=== PATIENT | male | born 1970 | race Caucasian/White ===

== ENCOUNTER 2016-10-07 11:23 | Emergency (ER) | payer SELFPAY ==
[~2016-10-07] VITALS: Ht 172.7 cm; Wt 81.5 kg
[~2016-10-07 11:23] MED LIST: DICL50 PO
[2016-10-07 11:24] VITALS: BP 126/79; PULSE 108; RESP 20; TEMP 98; O2SAT 97
[2016-10-07] MEDS ORDERED: CYCL1TAB29 PO (13:20)
[2016-10-07] MEDS ORDERED: IBUP800T23 PO (13:20)
--- NOTE | 2016-10-07 13:21 | PD ---
HPI Chief Complaint: Hip Injury Time Seen by Provider: 13:15 Travel History International Travel<30 days: No Contact w/Intl Traveler<30days: No Traveled to known affect area: No History of Present Illness HPI Patient is a 46 year-old male presenting to the emergency department for evaluation of left hip pain. Patient denies any injury or trauma. Patient states the pain started approximately one week ago and feels sore when he lifts his leg. He weakness in his leg, numbness, tingling. Patient states that he is taking ibuprofen occasionally for the pain. He states that his boss pushes him to work hard and this seems to exacerbate the pain. He reports his pain as a 6 out of 10 and describes it as sore. PFSH Past Medical History Medical History: Denies Significant Hx Anemia: No Asthma: No Autoimmune Disease: No Blood Disorders: No Bipolar Disorder: No Anxiety: No Depression: No Cancer: No Cardiovascular Problems: No High Cholesterol: No Chemotherapy: No Chest Pain: No Congestive Heart Failure: No COPD: No Cerebrovascular Accident: No Coronary Artery Disease: No Diabetes: No Endocrine: No Gastrointestinal Disorders: No Genitourinary: No Hepatitis: Yes Hypertension: No Kidney Stones: No Musculoskeletal: No Neurologic: No Psychiatric: No Reproductive: No Respiratory: No Migraines: No Myocardial Infarction: No Pancreatitis: No Radiation Therapy: No Schizophrenia: No Seizures: No Sickle Cell Disease: No Thyroid Disease: No Past Surgical History AICD: No Appendectomy: No Arteriovenous Shunt: No Cardiac Surgery: No Cholecystectomy: No Coronary Artery Bypass Graft: No Coronary Stent: No Insulin Pump: No Joint Replacement: No Pacemaker: No Tonsillectomy: No Tympanostomy Tube: No Social History Alcohol Use: No Tobacco Use: Yes (1- 1 1/2 PACKS/DAY) Substance Use: Yes Allergies-Medications (Allergen,Severity, Reaction): Coded Allergies: No Known Allergies (Verified , 10/07/16) Reported Meds & Prescriptions Reported Meds & Active Scripts Active Voltaren (Diclofenac Sodium) 50 Mg Tabec 50 Mg PO TID Review of Systems Except as stated in HPI: all other systems reviewed are Neg Musculoskeletal: Positive: Myalgias, Cramping Physical Exam Narrative GENERAL: Well-nourished, well-developed patient. SKIN: Warm and dry. HEAD: Normocephalic. EYES: No scleral icterus. No injection or drainage. NECK: Supple, trachea midline. No JVD or lymphadenopathy. CARDIOVASCULAR: Regular rate and rhythm without murmurs, gallops, or rubs. RESPIRATORY: Breath sounds equal bilaterally. No accessory muscle use. GASTROINTESTINAL: Abdomen soft, non-tender, nondistended. MUSCULOSKELETAL: No cyanosis, or edema. Tenderness to palpation on left lateral upper thigh. 5/5 muscle strength in bilateral lower extremities. BACK: Nontender without obvious deformity. No CVA tenderness. NEUROLOGICAL: Awake and alert. Cranial nerves II through XII intact. Motor and sensory grossly within normal limits. Five out of 5 muscle strength in all muscle groups. Normal speech. Data Data Last Documented VS Vital Signs Date Time Temp Pulse Resp B/P Pulse Ox O2 Delivery O2 Flow Rate FiO2 10/07/16 11:24 98.0 108 20 126/79 97 Room Air [facility] Medical Decision Making Medical Screen Exam Complete: Yes Emergency Medical Condition: Yes Interpretation(s) Vital Signs Date Time Temp Pulse Resp B/P Pulse Ox O2 Delivery O2 Flow Rate FiO2 10/07/16 11:24 98.0 108 20 126/79 97 Room Air Differential Diagnosis Sprain versus strain versus spasm versus other Narrative Course Patient is a 46-year-old male presenting to the emergency department for evaluation of left thigh/hip pain that started about a week ago with no defining injury or trauma or new activity. Patient is neurologically intact, he has full range of motion in bilateral lower extremities with no weakness on exam. Patient was advised to trial conservative management with anti- inflammatory medication, muscle relaxer, heat and ice. He was advised to continue range of motion exercises, avoid bed rest, avoid exacerbating activities. He was encouraged to follow-up with her primary doctor or return to emergency department for any new or worsening symptoms. Patient verbalized understanding of these instructions. Patient is stable for discharge. Diagnosis Primary Impression: Muscle strain Referrals: Primary Care Physician Patient Instructions: General Instructions, Muscle Strain (GEN) Departure Forms: Tests/Procedures, Work Release Enter return to work date: Oct 08, 2016 Special Instructions: Please allow for 2-3 days of light duty upon return to work on Friday10/09/16 Additional Instructions: Follow-up with a primary doctor Apply warm moist heat to the affected area, continue range of motion exercises, avoid bed rest, avoid exacerbating activities Take medication as directed Return to emergency department for any new or worsening symptoms Med/Other Pt SpecificInfo: Prescription(s) given Scripts Cyclobenzaprine (Flexeril)10 Mg Tab10 Mg PO TID PRN (MUSCLE SPASM) 7 Days Ref 0 Prov:Beata Resendiz 10/07/16 Ibuprofen 800 Mg [id number] Mg PO Q8HR PRN (PAIN) 10 Days Ref 0 Prov:Beata Resendiz 10/07/16 Disposition: 01 DISCHARGE HOME Condition: Stable Beata Resendiz Oct 07, 2016 13:21
== END 2016-10-07 13:39 | disposition home or self-care (01) ==
LOC: NEPB 11:23
DX: S76.012A Strain of muscle, fascia and tendon of left hip, initial encounter (principal); F17.210 Nicotine dependence, cigarettes, uncomplicated; X58.XXXA Exposure to other specified factors, initial encounter; Y93.9 Activity, unspecified; Y92.9 Unspecified place or not applicable
CPT/HCPCS: 99283

== ENCOUNTER 2016-10-16 09:13 | Emergency (ER) | payer SELFPAY ==
[~2016-10-16] VITALS: Ht 172.7 cm; Wt 80.0 kg
[~2016-10-16 09:13] MED LIST changes: +CYCL1TAB29 PO; +IBUP800T23 PO
[2016-10-16 09:14] VITALS: BP 142/92; PULSE 88; RESP 18; TEMP 98.1; O2SAT 99
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
[2016-10-16] MEDS ORDERED: IBUP800T23 PO (09:59)
[2016-10-16] MEDS ORDERED: ROBA500T PO (09:59)
[2016-10-16] MEDS ORDERED: METHOCARBAMOL 500 MG TAB PO ONE (10:00)
[2016-10-16] MEDS ORDERED: IBUPROFEN 800 MG TAB PO ONE (10:00)
== END 2016-10-16 10:19 | disposition home or self-care (01) ==
LOC: NEPB 09:13
DX: S46.811A Strain of other muscles, fascia and tendons at shoulder and upper arm level, right arm, initial encounter (principal); W03.XXXA Other fall on same level due to collision with another person, initial encounter; Y92.9 Unspecified place or not applicable; J44.9 Chronic obstructive pulmonary disease, unspecified; F17.210 Nicotine dependence, cigarettes, uncomplicated
CPT/HCPCS: 99283

== ENCOUNTER 2016-12-12 09:44 | Emergency (ER) | payer OTHER ==
[~2016-12-12 09:44] MED LIST changes: +ROBA500T PO
[2016-12-12 09:45] VITALS: BP 183/91; PULSE 81; RESP 20; TEMP 98.3; O2SAT 96
--- NOTE | 2016-12-12 10:09 | PD ---
HPI Chief Complaint: Musculoskeletal Complaint Time Seen by Provider: 09:55 Travel History International Travel<30 days: No Contact w/Intl Traveler<30days: No Traveled to known affect area: No History of Present Illness HPI This 46-year-old male is complaining of back pain. Says the pain started yesterday and is getting more severe. He denies any injury. After considerable prompting he does admit to IV drug use. He says the right leg is numb. He arrived by ambulance. He denies any medical illnesses. He thinks he had a fever yesterday. He has not had any dysuria or incontinence. PFSH Past Medical History Anemia: No Asthma: No Autoimmune Disease: No Blood Disorders: No Bipolar Disorder: No Anxiety: No Depression: No Cancer: No Cardiovascular Problems: No High Cholesterol: No Chemotherapy: No Chest Pain: No Congestive Heart Failure: No COPD: Yes Cerebrovascular Accident: No Coronary Artery Disease: No Diabetes: No Endocrine: No Gastrointestinal Disorders: No Genitourinary: No Hepatitis: Yes (HEP C) Hypertension: No Kidney Stones: No Musculoskeletal: No Neurologic: No Psychiatric: No Reproductive: No Respiratory: Yes (COPD) Migraines: No Myocardial Infarction: No Pancreatitis: No Radiation Therapy: No Schizophrenia: No Seizures: No Sickle Cell Disease: No Thyroid Disease: No Past Surgical History AICD: No Appendectomy: No Arteriovenous Shunt: No Cardiac Surgery: No Cholecystectomy: No Coronary Artery Bypass Graft: No Coronary Stent: No Insulin Pump: No Joint Replacement: No Pacemaker: No Tonsillectomy: No Tympanostomy Tube: No Social History Alcohol Use: Yes Tobacco Use: Yes (1- 1 1/2 PACKS/DAY) Substance Use: Yes (HEROIN, MARIJUANA) Allergies-Medications (Allergen,Severity, Reaction): Coded Allergies: No Known Allergies (Verified , 12/12/16) Reported Meds & Prescriptions Reported Meds & Active Scripts Active No Active Prescriptions or Reported Medications Review of Systems General / Constitutional: Positive: Fever Eyes: No: Diploplia, Blurred Vision HENT: No: Headaches, Vertigo Cardiovascular: No: Chest Pain or Discomfort, Palpitations Respiratory: No: Cough, Shortness of Breath Gastrointestinal: No: Vomiting, Diarrhea Genitourinary: No: Urgency, Frequency Musculoskeletal: Positive: Arthralgias, Pain Neurologic: Positive: Sensory Disturbance Psychiatric: Positive: Anxiety, Substance Abuse Endocrine: No: Heat Intolerance Hematologic/Lymphatic: No: Easy Bruising Physical Exam Narrative GENERAL: Well-developed male SKIN: Focused skin assessment warm/dry. There are multiple venipuncture sites in the left antecubital fossa HEAD: Atraumatic. Normocephalic. EYES: Pupils equal and round. No scleral icterus. No injection or drainage. ENT: No nasal bleeding or discharge. Mucous membranes pink and moist. NECK: Trachea midline. No JVD. CARDIOVASCULAR: Regular rate and rhythm. No murmur appreciated. RESPIRATORY: No accessory muscle use. Clear to auscultation. Breath sounds equal bilaterally. GASTROINTESTINAL: Abdomen soft, non-tender, nondistended. Hepatic and splenic margins not palpable. MUSCULOSKELETAL: No obvious deformities. No clubbing. No cyanosis. No edema. He complains of tenderness of the low back. NEUROLOGICAL: Awake and alert. No obvious cranial nerve deficits. Pressured speech, there is diminished sensation in the right leg, motor strength appears intact in flexion and extension of the foot PSYCHIATRIC: Anxious mood, insight limited Data Data Last Documented VS Vital Signs Date Time Temp Pulse Resp B/P Pulse Ox O2 Delivery O2 Flow Rate FiO2 12/12/16 14:25 98.4 78 14 150/101 98 Nasal Cannula 2 Orders Complete Blood Count With Diff (12/12/16 10:02) Comprehensive Metabolic Panel (12/12/16 10:02) Prothrombin Time / Inr (Pt) (12/12/16 10:02) Act Partial Throm Time (Ptt) (12/12/16 10:02) C-Reactive Protein (Crp) (12/12/16 10:02) Westergren Sedimentation Rate (12/12/16 10:02) Drug Screen, Random Urine (12/12/16 10:02) Mri L Spine W&W/O Contrast (12/12/16 ) Blood Culture (12/12/16 10:02) Ondansetron Inj (Zofran Inj) (12/12/16 10:30) Hydromorphone Pf Inj (Dilaudid Pf Inj) (12/12/16 10:30) Chest, Single Ap (12/12/16 ) Abdomen, Kub Only (12/12/16 ) Orbits, Limited (Two Views) (12/12/16 ) Hydromorphone Pf Inj (Dilaudid Pf Inj) (12/12/16 13:30) Gadodiamide Pf Inj (Omniscan Pf Inj) (12/12/16 13:58) Labs Laboratory Tests Test 12/12/16 10:15 White Blood Count 9.4 TH/MM3 Red Blood Count 5.84 MIL/MM3 Hemoglobin 18.5 GM/DL Hematocrit 55.9 % Mean Corpuscular Volume 95.6 FL Mean Corpuscular Hemoglobin 31.7 PG Mean Corpuscular Hemoglobin 33.1 % Concent Red Cell Distribution Width 12.8 % Platelet Count 57 TH/MM3 Mean Platelet Volume 9.6 FL Neutrophils (%) (Auto) 78.2 % Lymphocytes (%) (Auto) 12.4 % Monocytes (%) (Auto) 6.7 % Eosinophils (%) (Auto) 2.4 % Basophils (%) (Auto) 0.3 % Neutrophils # (Auto) 7.4 TH/MM3 Lymphocytes # (Auto) 1.2 TH/MM3 Monocytes # (Auto) 0.6 TH/MM3 Eosinophils # (Auto) 0.2 TH/MM3 Basophils # (Auto) 0.0 TH/MM3 CBC Comment AUTO DIFF Differential Total Cells 100 Counted Neutrophils % (Manual) 69 % Band Neutrophils % 11 % Lymphocytes % 17 % Monocytes % 1 % Eosinophils % 2 % Neutrophils # (Manual) 7.5 TH/MM3 Differential Comment FINAL DIFF MANUAL Platelet Estimate LOW Platelet Morphology Comment NORMAL Red Cell Morphology Comment NORMAL Erythrocyte Sedimentation Rate 1 mm/hr Prothrombin Time 11.2 SEC Prothromb Time International 1.0 RATIO Ratio Activated Partial 30.7 SEC Thromboplast Time Sodium Level 140 MEQ/L Potassium Level 4.3 MEQ/L Chloride Level 102 MEQ/L Carbon Dioxide Level 28.5 MEQ/L Anion Gap 10 MEQ/L Blood Urea Nitrogen 7 MG/DL Creatinine 0.86 MG/DL Estimat Glomerular Filtration 95 ML/MIN Rate Random Glucose 100 MG/DL Calcium Level 9.1 MG/DL Total Bilirubin 0.6 MG/DL Aspartate Amino Transf 54 U/L (AST/SGOT) Alanine Aminotransferase 59 U/L (ALT/SGPT) Alkaline Phosphatase 75 U/L C-Reactive Protein 0.41 MG/DL Total Protein 9.1 GM/DL Albumin 3.8 GM/DL [facility] Medical Decision Making Medical Screen Exam Complete: Yes Emergency Medical Condition: Yes Medical Record Reviewed: Yes Differential Diagnosis This gentleman is complaining of severe pain. He is an IV drug user so there is concern that he may have an epidural abscess. Narrative Course His hemoglobin is elevated at 18.5. His platelet count is actually low. Sedimentation rate and CRP are both normal which makes abscess less likely. MRI of the lumbar spine was obtained and shows grade 1 anterolisthesis at L4- L5. There is advanced facet arthropathy and moderate central canal and lateral recess stenosis. On the right side there is a large annular tear no focal disc extrusion compressing the right L4 nerve root. Patient will be given prescriptions for pain medication. He does have a history of IV drug abuse but says he uses abuses cocaine. He does appear uncomfortable and I will prescribe some Lortab. I will request mandatory referral with neurosurgery for follow-up Diagnosis Primary Impression: Radiculopathy Qualified Code: M54.16 - Lumbar radiculopathy Additional Impression: HNP (herniated nucleus pulposus), lumbar Scripts Hydrocodone-Acetaminophen (Lortab)7.5-325 Mg Tab1 Tab PO Q4H PRN (PAIN) #30 TAB Ref 0 Prov:Ludwin Banks MD 12/12/16 Cyclobenzaprine (Flexeril)10 Mg Tab10 Mg PO TID #30 TAB Ref 0 Prov:Ludwin Banks MD 12/12/16 Disposition: 01 DISCHARGE HOME Condition: Stable Ludwin Banks MD December 12, 2016 10:09
[2016-12-12] MEDS ORDERED: HYDROmorphone HCL PF 1 MG/ML VIAL IV PUSH ONE ×2 (10:30→13:30)
[2016-12-12] MEDS ORDERED: ONDANSETRON HCL 4 MG/2 ML VIAL IV PUSH ONE (10:30)
[2016-12-12 10:35] LABS: AUTOMATED NEUTROPHIL # 7.4 TH/MM3 (1.8-7.7); BASOPHIL % 0.3 % (0.0-2.0); EOSINOPHIL # 0.2 TH/MM3 (0-0.4); EOSINOPHIL % 2.4 % (0.0-4.0); HEMATOCRIT 55.9 % (39.0-51.0); LYMPH % 12.4 % (9.0-44.0); LYMPHOCYTE # 1.2 TH/MM3 (1.0-4.8); MEAN CELL VOLUME 95.6 FL (80.0-100.0); MEAN CORPUSCULAR HEMOGLOBIN 31.7 PG (27.0-34.0); MEAN CORPUSCULAR HGB CONC 33.1 % (32.0-36.0); MONO % 6.7 % (0.0-8.0); NEUT % 78.2 % (16.0-70.0); PLATELET COUNT 57 TH/MM3 (150-450); RED BLOOD COUNT 5.84 MIL/MM3 (4.50-5.90); RED CELL DISTRIBUTION WIDTH 12.8 % (11.6-17.2); WHITE BLOOD COUNT 9.4 TH/MM3 (4.0-11.0)
[2016-12-12 10:39] LABS: CHLORIDE 102 MEQ/L (98-107); POTASSIUM 4.3 MEQ/L (3.5-5.1); SODIUM (NA) 140 MEQ/L (136-145)
[2016-12-12 10:42] LABS: ANION GAP 10 MEQ/L (5-15); BICARBONATE 28.5 MEQ/L (21.0-32.0)
[2016-12-12 10:43] LABS: APTT (PATIENT) 30.7 SEC (24.3-30.1); BLOOD UREA NITROGEN 7 MG/DL (7-18); PROTHROMBIN TIME - PATIENT 11.2 SEC (9.8-11.6)
[2016-12-12 10:45] LABS: ALT (GPT) 59 U/L (12-78)
[2016-12-12 10:46] LABS: AST (GOT) 54 U/L (15-37); GLOMERULAR FILTRATION RATE 95 ML/MIN (>89)
[2016-12-12 10:47] LABS: TOTAL BILIRUBIN ADULT 0.6 MG/DL (0.2-1.0)
[2016-12-12 10:48] LABS: ALKALINE PHOSPHATASE 75 U/L (45-117)
[2016-12-12 10:54] LABS: HEMO FLAGS AUTO DIFF
[2016-12-12 10:58] LABS: BANDS 11 % (0-6); EOSINOPHILS 2 % (0-4); NEUTROPHIL # MANUAL DIFF 7.5 TH/MM3 (1.8-7.7); POLYS (SEG NEUTROPHILS) 69 % (16-70); WBC DIFF SAMPLE 100
[2016-12-12 10:59] LABS: PLATELET ESTIMATE SMEAR LOW (NORMAL); PLATELET MORPHOLOGY NORMAL (NORMAL); SCAN/DIFF FINAL DIFF MANUAL
[2016-12-12 12:14] VITALS: PULSE 78; RESP 14; TEMP 98.3; O2SAT 100
--- NOTE | 2016-12-12 13:11 | RADHPO ---
EXAM DATE/TIME: 12/12/2016 12:42 [facility] COMPARISON: No previous studies available for comparison. INDICATIONS : Patient states back pain for three days but no known injury. MEDICAL HISTORY : None. SURGICAL HISTORY : None. ENCOUNTER: Initial ACUITY: 3 days PAIN SCORE: 10/10 LOCATION: Bilateral back pain. FINDINGS: Single frontal view of the abdomen demonstrates no metallic or radiopaque foreign bodies. There is a nonobstructive bowel gas pattern. There are degenerative changes of the lumbar spine. CONCLUSION: Degenerative changes of the lumbar spine with mild dextroscoliosis. There is no radiopaque foreign nayana dy. Sahil Chow MD on December 12, 2016 at 13:09 Board Certified Radiologist. This report was verified electronically.
--- NOTE | 2016-12-12 13:11 | RADHPO ---
EXAM DATE/TIME: 12/12/2016 12:40 [facility] COMPARISON: No previous studies available for comparison. INDICATIONS : Patient states back pain for three days but no known injury. MEDICAL HISTORY : None. SURGICAL HISTORY : None. ENCOUNTER: Initial ACUITY: 3 days PAIN SCORE: 10/10 LOCATION: Bilateral back pain. FINDINGS: Single AP view of the chest demonstrates a normal-sized cardiac silhouette. No effusion, consolidatio n, or pneumothorax is visualized. Bones and soft tissues demonstrate no acute finding. No radiopaque foreign body is identified. CONCLUSION: No radiopaque foreign bodies visualized. No acute finding is present. Sahil Chow MD on December 12, 2016 at 13:08 Board Certified Radiologist. This report was verified electronically.
--- NOTE | 2016-12-12 13:12 | RADHPO ---
EXAM DATE/TIME: 12/12/2016 12:48 [facility] COMPARISON: No previous studies available for comparison. INDICATIONS : Patient states back pain for three days but no known injury. MEDICAL HISTORY : None. SURGICAL HISTORY : None. ENCOUNTER: Initial ACUITY: 3 days PAIN SCORE: 10/10 LOCATION: Bilateral back pain. FINDINGS: 2 views of the orbits demonstrate no metallic or radiopaque foreign bodies around the globes. There i s dental hardware present. No acute osseous abnormality is seen. CONCLUSION: No metallic or radiopaque foreign body is visualized. Sahil Chow MD on December 12, 2016 at 13:10 Board Certified Radiologist. This report was verified electronically.
[2016-12-12 13:13] VITALS: BP 195/97; PULSE 63; RESP 14; O2SAT 98
[2016-12-12] MEDS ORDERED: GADODIAMIDE PF 287 MG/ML 5 ML VIAL (for RAD MRI) IV ONE (13:58)
[2016-12-12 14:25] VITALS: BP 150/101; PULSE 78; RESP 14; TEMP 98.4; O2SAT 98
--- NOTE | 2016-12-12 14:44 | RADHPO ---
EXAM DATE/TIME: 12/12/2016 13:42 [facility] COMPARISON: No previous studies available for comparison. INDICATIONS : Osteomyelitis. Right leg and back pain for three days. CONTRAST: 15 cc Omniscan (gadodiamide) IV MEDICAL HISTORY : Chronic obstructive pulmonary disease. Hepatitis C. IV drug abuse. SURGICAL HISTORY : None. ENCOUNTER: Initial ACUITY: 3 day PAIN SCORE: 10/10 LOCATION: Lower back. TECHNIQUE: Multiplanar multisequence MRI of the lumbar spine was performed with and without contrast. FINDINGS: The most caudal appearing lumbar vertebra is numbered as L5. T12-L1: The thecal sac has a normal diameter. No evidence of disc bulge or protrusion. The neural foramina are patent bilaterally. L1-L2: The thecal sac has a normal diameter. Mild disc bulge without stenosis. L2-L3: The thecal sac has a normal diameter. No evidence of disc bulge or protrusion. The neural foramina are patent bilaterally. L3-L4: Mild disc bulge without stenosis. L4-L5: Grade 1 anterolisthesis with mild broad-based disc protrusion and facet arthropathy. Focal moderate c entral canal and lateral recess stenosis. On the right side laterally there does appear to be a focal disc extrusion associated with an annular tear that results in compression on the right L4 nerve penny t. This area also enhances postcontrast. L5-S1: The thecal sac has a normal diameter. No evidence of disc bulge or protrusion. The neural foramina are patent bilaterally. CONCLUSION: 1. At L4-5 there is a grade 1 anterolisthesis, advanced facet arthropathy and a moderate central larry l and lateral recess stenosis. On the right side laterally there is a large annular tear and a focal disc extrusion with extruded disc material compressing the right L4 nerve root. There is abnormal enhancement in the right neural foramen at L4-5 as well. No evidence for discitis o r osteomyelitis. Conus intact. Cuauhtemoc Brown MD on December 12, 2016 at 14:36 Board Certified Radiologist. This report was verified electronically.
[2016-12-12] MEDS ORDERED: HYDR-3534 PO (14:57)
[2016-12-12] MEDS ORDERED: CYCL1TAB29 PO (14:57)
== END 2016-12-12 16:15 | disposition home or self-care (01) ==
LOC: PHED 09:44
DX: M54.16 Radiculopathy, lumbar region (principal); M51.26 Other intervertebral disc displacement, lumbar region; J44.9 Chronic obstructive pulmonary disease, unspecified; B19.20 Unspecified viral hepatitis C without hepatic coma; M25.50 Pain in unspecified joint; F17.200 Nicotine dependence, unspecified, uncomplicated; F12.10 Cannabis abuse, uncomplicated; F11.10 Opioid abuse, uncomplicated
CPT/HCPCS: 70250; 71010; 72158; 74000; 80053; 85007; 85027; 85610; 85652; 85730; 86140; 87040; 96374; 96376; 99284; A9579; J1170; J2405

== ENCOUNTER 2017-01-28 23:04 | Emergency (ER) | payer OTHER ==
[~2017-01-28] VITALS: Ht 172.7 cm; Wt 78.0 kg
[~2017-01-28 23:04] MED LIST changes: -DICL50 PO; +HYDR-3534 PO; -IBUP800T23 PO; -ROBA500T PO
[2017-01-28 23:06] VITALS: BP 145/88; PULSE 89; RESP 16; TEMP 98.8; O2SAT 97
[2017-01-28] MEDS ORDERED: ALBU6.7H INH (23:21)
[2017-01-28] MEDS ORDERED: PRED-503 PO (23:21)
--- NOTE | 2017-01-28 23:25 | PD ---
HPI Chief Complaint: Skin Problem Time Seen by Provider: 23:22 Travel History International Travel<30 days: No Contact w/Intl Traveler<30days: No Traveled to known affect area: No History of Present Illness HPI 46-year-old white male presents to emergency department with multiple complaints. He states that his first complaint is that he is having problems with his COPD. He is not using any of his inhaler because he is out. He does continue to smoke cigarettes on occasion and marijuana. He states that he feels short of breath at rest and worse when he does activities. He does have intermittent cough. He denies any fever or chills. Also then goes on to state that his had a pruritic rash on his arms and legs and on his upper back. He said this is been present now for the past week he's been taking over-the- counter Benadryl with temporary relief. The patient also has a lump to his left axilla over the last 3 days. He has become increasingly painful. Lastly he complains of pain down his right leg from his back. He states that he has sciatica which goes into his foot. He states that he has decreased sensation in his big toe. He is a member of the [facility] but has not been seen in the clinic yet. He states that he has called to make an appointment but cannot get through. [facility] Past Medical History Narrative Medical COPD, chronic back pain with sciatica, hepatitis C, thrombocytopenia Anemia: No Asthma: No Autoimmune Disease: No Blood Disorders: No Bipolar Disorder: No Anxiety: No Depression: No Cancer: No Cardiovascular Problems: No High Cholesterol: No Chemotherapy: No Chest Pain: No Congestive Heart Failure: No COPD: Yes Cerebrovascular Accident: No Coronary Artery Disease: No Diabetes: No Endocrine: No Gastrointestinal Disorders: No Genitourinary: No Hepatitis: Yes (HEP C) Hypertension: No Kidney Stones: No Musculoskeletal: No Neurologic: No Psychiatric: No Reproductive: No Respiratory: Yes (COPD) Migraines: No Myocardial Infarction: No Pancreatitis: No Radiation Therapy: No Schizophrenia: No Seizures: No Sickle Cell Disease: No Thyroid Disease: No Tetanus Vaccination: < 5 Years Past Surgical History Surgical History: No Previous Surgery AICD: No Appendectomy: No Arteriovenous Shunt: No Cardiac Surgery: No Cholecystectomy: No Coronary Artery Bypass Graft: No Coronary Stent: No Insulin Pump: No Joint Replacement: No Pacemaker: No Tonsillectomy: No Tympanostomy Tube: No Social History Alcohol Use: Yes Tobacco Use: Yes (1- 1 1/2 PACKS/DAY) Substance Use: Yes (HEROIN, MARIJUANA) Allergies-Medications (Allergen,Severity, Reaction): Coded Allergies: No Known Allergies (Verified , 01/28/17) Reported Meds & Prescriptions Reported Meds & Active Scripts Active Deltasone (Prednisone) 20 Mg Tab 20 Mg PO TID Proventil Hfa 6.7 GM Inh (Albuterol Sulfate) 90 Mcg/Act Aer 2 Puff INH Q6H PRN Lortab (Hydrocodone-Acetaminophen) 7.5-325 Mg Tab 1 Tab PO Q4H PRN Flexeril (Cyclobenzaprine HCl) 10 Mg Tab 10 Mg PO TID Review of Systems Except as stated in HPI: all other systems reviewed are Neg Physical Exam Narrative GENERAL: Well-developed, well-nourished in no acute distress. Nontoxic appearing. HEAD: Normocephalic, atraumatic. EYES: Pupils equal round and reactive. Extraocular motions intact. No scleral icterus. No injection or drainage. ENT: TMs clear without erythema. The external auditory canals clear. Nose: clear . Posterior pharynx is pink and moist. No tonsillar edema or exudate. Uvula midline. Airway patent. NECK: Trachea midline.Supple, nontender, moves head freely. No central bony tenderness or spasm. CARDIOVASCULAR: Regular rate and rhythm without murmurs, gallops, or rubs. RESPIRATORY: Clear to auscultation. Breath sounds equal bilaterally. No wheezes , rales, or rhonchi. GASTROINTESTINAL: Abdomen soft, non-tender, nondistended. No hepato-splenomegaly , or palpable masses. No guarding. EXTREMITIES: No clubbing, cyanosis, or edema. No joint tenderness, effusion, or edema noted. Patient has a 2 x 2 centimeter erythematous tender fluctuant abscess left axilla. Patient also has nail fungus. BACK: Nontender without deformity or crepitance. No flank tenderness. Skin: Patient has a 2 x 2 centimeter abscess left axilla. He also has multiple story it maculopapular lesions on his upper and lower extremities. Data Data Last Documented VS Vital Signs Date Time Temp Pulse Resp B/P Pulse Ox O2 Delivery O2 Flow Rate FiO2 01/28/17 23:06 98.8 89 16 145/88 97 Room Air Orders Prednisone (Deltasone) (01/28/17 23:30) Albuterol-Ipratropium Neb (Duoneb Neb) (01/28/17 23:30) [facility] Medical Decision Making Medical Screen Exam Complete: Yes Emergency Medical Condition: Yes Medical Record Reviewed: Yes Differential Diagnosis Differential diagnosis: Asthma, COPD, substance abuse, cellulitis, abscess, insect bite, contact dermatitis, back pain, back pain with sciatica Narrative Course Patient is given prednisone 60 mg by mouth, DuoNeb, needle aspiration of left axilla abscess. He will be discharged after his breathing treatment. He has been encouraged to follow-up with the clinic or the [facility] Procedures Procedure Narrative Needle aspiration left axilla abscess: The skin is prepped and draped in usual sterile fashion. 1% lidocaine is used to anesthetize the skin. After adequate and his anesthesia and 18-gauge was used to needle decompressed the abscess cavity. 2 cc of pus is removed. Patient tolerated procedure well. Dressing applied. Diagnosis Primary Impression: Abscess of left axilla Additional Impressions: COPD back pain with sciatica contact dermatitis Patient Instructions: General Instructions Additional Instructions: Rest. Elevation. keep clean and dry. Stop smoking and doing drugs. Daily wound care with soap, water and Neosporin. Three Advil every 6 hours. Bactrim DS, prednisone, albuterol Follow-up with [facility] or the [facility] clinic in the next 1-2 days. Return to the ER for any problems. Med/Other Pt SpecificInfo: Prescription(s) given Scripts Sulfamethoxazole-Trimethoprim (Bactrim DS)800-160 Mg Tab1 Tab PO BID #20 TAB Prov:Cindy Lee MD 01/28/17 Prednisone (Deltasone)20 Mg Tab20 Mg PO TID #15 TAB Prov:Cindy Lee MD 01/28/17 Albuterol 6.7 GM Inh (Proventil Hfa 6.7 GM Inh)90 Mcg/Act Aer2 Puff INH Q6H PRN (SHORTNESS OF BREATH) #1 INHALER Prov:Cindy Lee MD 01/28/17 Disposition: 01 DISCHARGE HOME Condition: Stable Cuauhtemoc Burks Jan 28, 2017 23:25
[2017-01-28] MEDS ORDERED: predniSONE 20 MG TAB PO ONE (23:30)
[2017-01-28] MEDS ORDERED: RESP: ALBUTEROL 2.5 MG/IPRATROPIUM 0.5 MG NEB (SCH) INH ONE (23:30)
[2017-01-28] MEDS ORDERED: BACT800T5 PO (23:34)
== END 2017-01-28 23:55 | disposition home or self-care (01) ==
LOC: NEPK 23:04
DX: L02.412 Cutaneous abscess of left axilla (principal); J44.9 Chronic obstructive pulmonary disease, unspecified; L25.9 Unspecified contact dermatitis, unspecified cause; F17.210 Nicotine dependence, cigarettes, uncomplicated; M54.41 Lumbago with sciatica, right side
CPT/HCPCS: 10160; 94664; 99284; J7512

== ENCOUNTER 2017-02-15 08:05 | Emergency (ER) | payer OTHER ==
[~2017-02-15] VITALS: Ht 172.7 cm; Wt 75.0 kg
[~2017-02-15 08:05] MED LIST changes: +ALBU6.7H INH; +PRED-503 PO
[2017-02-15 08:13] VITALS: BP 147/101; PULSE 57; RESP 20; TEMP 98.2; O2SAT 96
[2017-02-15] MEDS ORDERED: SODIUM CHLORIDE 0.9% FLUSH 10 ML FLUSH IVF PRN (08:45)
[2017-02-15] MEDS ORDERED: RESP: ALBUTEROL 2.5 MG/3 ML NEB (SCH) INH ONE (08:45)
[2017-02-15] MEDS ORDERED: methylPREDNISolone SOD SUCC 125 MG/2 ML VIAL IVP ONE (08:45)
--- NOTE | 2017-02-15 08:49 | RADRPT ---
EXAM DATE/TIME: 02/15/2017 08:36 [facility] COMPARISON: CHEST SINGLE AP, December 12, 2016, 12:40. INDICATIONS : Shortness of breath. MEDICAL HISTORY : None. SURGICAL HISTORY : None. ENCOUNTER: Initial ACUITY: 1 week PAIN SCORE: Non-responsive. LOCATION: chest FINDINGS: A single view of the chest demonstrates the lungs to be symmetrically aerated without evidence of mas s, infiltrate or effusion. The cardiomediastinal contours are unremarkable. Osseous structures are intact. CONCLUSION: No acute disease. Mier Hudson MD FACR on February 15, 2017 at 8:47 Board Certified Radiologist. This report was verified electronically.
--- NOTE | 2017-02-15 08:55 | PD ---
HPI Chief Complaint: Respiratory Symptoms Time Seen by Provider: 08:13 Travel History International Travel<30 days: No Contact w/Intl Traveler<30days: No Traveled to known affect area: No History of Present Illness HPI 46-year-old male arrives to the ER via EMS. He states that he woke up and he was unable to breathe. His friends called EMS. EMS reports the patient had wheezing in the right lung. He received one albuterol treatment which he states seems to have helped. He denies fever however has had a cough which has produced phlegm. He denies chest pain. He complains of a cut in the left arm which has caused bleeding however stopped with application of a dressing. PFSH Past Medical History Anemia: No Asthma: No Autoimmune Disease: No Blood Disorders: No Bipolar Disorder: No Anxiety: No Depression: No Cancer: No Cardiovascular Problems: No High Cholesterol: No Chemotherapy: No Chest Pain: No Congestive Heart Failure: No COPD: Yes Cerebrovascular Accident: No Coronary Artery Disease: No Diabetes: No Diminished Hearing: No Endocrine: No Gastrointestinal Disorders: No Genitourinary: No Hepatitis: Yes (HEP C) Hypertension: No Kidney Stones: No Musculoskeletal: No Neurologic: No Psychiatric: No Reproductive: No Respiratory: Yes (COPD) Migraines: No Myocardial Infarction: No Pancreatitis: No Radiation Therapy: No Schizophrenia: No Seizures: No Sickle Cell Disease: No Thyroid Disease: No Past Surgical History AICD: No Appendectomy: No Arteriovenous Shunt: No Cardiac Surgery: No Cholecystectomy: No Coronary Artery Bypass Graft: No Coronary Stent: No Insulin Pump: No Joint Replacement: No Pacemaker: No Tonsillectomy: No Tympanostomy Tube: No Social History Alcohol Use: Yes Tobacco Use: Yes (1- 1 1/2 PACKS/DAY) Substance Use: Yes (H/O HEROIN, MARIJUANA) Allergies-Medications (Allergen,Severity, Reaction): Coded Allergies: No Known Allergies (Verified , 02/11/17) Reported Meds & Prescriptions Reported Meds & Active Scripts Active Prednisone 20 Mg Tab 40 Mg PO DAILY 4 Days Take 40 mg (2 tablets) daily for 5 days Deltasone (Prednisone) 20 Mg Tab 20 Mg PO TID Proventil Hfa 6.7 GM Inh (Albuterol Sulfate) 90 Mcg/Act Aer 2 Puff INH Q6H PRN Lortab (Hydrocodone-Acetaminophen) 7.5-325 Mg Tab 1 Tab PO Q4H PRN Flexeril (Cyclobenzaprine HCl) 10 Mg Tab 10 Mg PO TID Review of Systems Except as stated in HPI: all other systems reviewed are Neg Physical Exam Narrative GENERAL: 46 yo M, WNWD, very sleepy though arousable and able to provide history with repeated prompts SKIN: Warm and dry. There is a abrasion overlying the radial aspect of the most proximal aspect left arm. There is no Rodriguez spots or evidence of peripheral embolic disease. HEAD: Atraumatic. Normocephalic. EYES: Pupils equal and round. No scleral icterus. No injection or drainage. ENT: No nasal bleeding or discharge. Mucous membranes pink and moist. NECK: Trachea midline. No JVD. CARDIOVASCULAR: Regular rate and rhythm. There is no murmur. RESPIRATORY: Respiratory rate appears normal. Minimal wheezing. GASTROINTESTINAL: Abdomen soft, non-tender, nondistended. Hepatic and splenic margins not palpable. MUSCULOSKELETAL: Extremities without clubbing, cyanosis, or edema. No obvious deformities. NEUROLOGICAL: Awake and alert. No obvious cranial nerve deficits. Motor grossly within normal limits. Five out of 5 muscle strength in the arms and legs. Normal speech. PSYCHIATRIC: Cooperative. Appropriate seasonal attire. Data Data Last Documented VS Vital Signs Date Time Temp Pulse Resp B/P Pulse Ox O2 Delivery O2 Flow Rate FiO2 02/15/17 08:25 99 Nasal Cannula 2 02/15/17 08:13 98.2 57 20 147/101 VS reviewed Orders Complete Blood Count With Diff (02/15/17 08:32) Basic Metabolic Panel (Bmp) (02/15/17 08:32) Iv Access Insert/Monitor (02/15/17 08:32) Ecg Monitoring (02/15/17 08:32) Oximetry (02/15/17 08:32) Oxygen Administration (02/15/17 08:32) Chest, Single Ap (02/15/17 08:32) Sodium Chloride 0.9% Flush (Ns Flush) (02/15/17 08:45) Methylprednisolone So Succ Inj (Solumedr (02/15/17 08:45) Albuterol Neb (Albuterol Neb) (02/15/17 08:45) Albuterol Hfa Inh (Proair Hfa Inh) (02/15/17 09:15) Naloxone Inj (Narcan Inj) (02/15/17 09:30) Labs Laboratory Tests Test 02/15/17 08:45 White Blood Count 8.1 TH/MM3 Red Blood Count 4.78 MIL/MM3 Hemoglobin 16.0 GM/DL Hematocrit 47.0 % Mean Corpuscular Volume 98.2 FL Mean Corpuscular Hemoglobin 33.5 PG Mean Corpuscular Hemoglobin 34.1 % Concent Red Cell Distribution Width 13.8 % Platelet Count 87 TH/MM3 Mean Platelet Volume 8.8 FL Neutrophils (%) (Auto) 53.1 % Lymphocytes (%) (Auto) 37.2 % Monocytes (%) (Auto) 7.1 % Eosinophils (%) (Auto) 2.4 % Basophils (%) (Auto) 0.2 % Neutrophils # (Auto) 4.3 TH/MM3 Lymphocytes # (Auto) 3.0 TH/MM3 Monocytes # (Auto) 0.6 TH/MM3 Eosinophils # (Auto) 0.2 TH/MM3 Basophils # (Auto) 0.0 TH/MM3 CBC Comment AUTO DIFF Sodium Level 139 MEQ/L Potassium Level 3.5 MEQ/L Chloride Level 108 MEQ/L Carbon Dioxide Level 24.6 MEQ/L Anion Gap 6 MEQ/L Blood Urea Nitrogen 20 MG/DL Creatinine 0.94 MG/DL Estimat Glomerular Filtration 86 ML/MIN Rate Random Glucose 73 MG/DL Calcium Level 8.0 MG/DL [facility] Medical Decision Making Medical Screen Exam Complete: Yes Emergency Medical Condition: Yes Medical Record Reviewed: Yes Differential Diagnosis Pneumonia, COPD, asthma, bronchitis, anemia, renal failure, endocarditis Narrative Course CBC & BMP Diagram 02/15/17 08:45 Last 24 hours Impressions Chest X-Ray 02/15/17 0832 Signed Impressions: Service Date/Time: Friday, February 15, 2017 08:36 - CONCLUSION: No acute disease. Meir Hudson MD FACR 930AM: Pt resting comfortably, normal RR, discharge plan discussed, patient agreeable with plan. Pt has hx of COPD and today's presentation is most in keeping with diagnosis of COPD exacerbation. Endocarditis is considered less likely in the absence of murmur and fever. Diagnosis Primary Impression: Dyspnea Qualified Code: R06.00 - Dyspnea, unspecified type Referrals: Annette Vieira MD 2 days Additional Instructions: You have a choice when it comes to health care, and we are glad that you chose [facility]. Hopefully, we have met your expectations on today's visit. You are welcome to return to [facility] at any time, as we are committed to meeting the health care needs of our community. PLEASE RETURN TO THE ER SHOULD YOU DEVELOP ANY CHEST PAIN OR FEVER. PLEASE BE SURE TO FILL YOUR PREDNISONE PRESCRIPTION TODAY AND START TAKING IT TOMORROW MORNING. PLEASE CONSIDER STOPPING SMOKING. Med/Other Pt SpecificInfo: Prescription(s) given Scripts Prednisone 20 Mg Tab40 Mg PO DAILY 4 Days Ref 0 Take 40 mg (2 tablets) daily for 5 days Prov:Roni Marie MD 02/15/17 Disposition: 01 DISCHARGE HOME Condition: Stable Roni Marie MD Feb 15, 2017 08:55
[2017-02-15 08:59] LABS: AUTOMATED NEUTROPHIL # 4.3 TH/MM3 (1.8-7.7); BASOPHIL % 0.2 % (0.0-2.0); EOSINOPHIL # 0.2 TH/MM3 (0-0.4); EOSINOPHIL % 2.4 % (0.0-4.0); LYMPH % 37.2 % (9.0-44.0); MEAN CELL VOLUME 98.2 FL (80.0-100.0); MEAN CORPUSCULAR HEMOGLOBIN 33.5 PG (27.0-34.0); MEAN CORPUSCULAR HGB CONC 34.1 % (32.0-36.0); MONO % 7.1 % (0.0-8.0); NEUT % 53.1 % (16.0-70.0); PLATELET COUNT 87 TH/MM3 (150-450); RED BLOOD COUNT 4.78 MIL/MM3 (4.50-5.90); RED CELL DISTRIBUTION WIDTH 13.8 % (11.6-17.2); WHITE BLOOD COUNT 8.1 TH/MM3 (4.0-11.0)
[2017-02-15 09:03] LABS: HEMO FLAGS AUTO DIFF
[2017-02-15] MEDS ORDERED: PRED20 PO (09:07)
[2017-02-15] MEDS: ALBUTEROL SULFATE 90 MCG/ACT HFA 8 GM INHALER INH ONE ×2 (09:15→10:48)
[2017-02-15 09:25] LABS: BICARBONATE 24.6 MEQ/L (21.0-32.0)
[2017-02-15 09:26] LABS: POTASSIUM 3.5 MEQ/L (3.5-5.1)
[2017-02-15] MEDS ORDERED: NALOXONE HCL 0.4 MG/ML AMP IV PUSH ONE (09:30)
[2017-02-15 09:45] LABS: ATYPICAL LYMPHOCYTES 7 % (0-0); BANDS 2 % (0-6); EOSINOPHILS 6 % (0-4); NEUTROPHIL # MANUAL DIFF 4.4 TH/MM3 (1.8-7.7); PLATELET ESTIMATE SMEAR LOW (NORMAL); PLATELET MORPHOLOGY NORMAL (NORMAL); POLYS (SEG NEUTROPHILS) 52 % (16-70); SCAN/DIFF FINAL DIFF MANUAL; WBC DIFF SAMPLE 100
[2017-02-15] MEDS ORDERED: ALBUTEROL SULFATE 90 MCG/ACT HFA 18 GM INHALER INH ONE (10:15)
[2017-02-15 11:17] VITALS: BP 140/75
== END 2017-02-15 11:20 | disposition home or self-care (01) ==
LOC: NEPE 08:05
DX: J44.1 Chronic obstructive pulmonary disease with (acute) exacerbation (principal); F17.200 Nicotine dependence, unspecified, uncomplicated
CPT/HCPCS: 71010; 80048; 85007; 85027; 94664; 96374; 96375; 99284; J2310; J2930; J7613

== ENCOUNTER 2017-04-28 09:22 | Emergency (ER) | payer OTHER ==
[~2017-04-28] VITALS: Ht 172.7 cm; Wt 65.0 kg
[~2017-04-28 09:22] MED LIST changes: +PRED20 PO
[2017-04-28 09:25] VITALS: BP 139/83; PULSE 98; RESP 16; TEMP 98.4; O2SAT 98
[2017-04-28 10:07] VITALS: BP 133/94; PULSE 84; RESP 19; TEMP 98; O2SAT 97
[2017-04-28] MEDS ORDERED: BACT800T5 PO (10:18)
[2017-04-28] MEDS ORDERED: CEPH-460 PO (10:18)
[2017-04-28] MEDS ORDERED: IBUP800T23 PO (10:18)
--- NOTE | 2017-04-28 10:19 | PD ---
HPI Chief Complaint: Skin Problem Time Seen by Provider: 10:15 Travel History International Travel<30 days: No Contact w/Intl Traveler<30days: No Traveled to known affect area: No History of Present Illness HPI Plan 7-year-old male presents emergency Department with complaint of an abscess to his left arm 4 days. Denies fever, vomiting. Has not taken any medications or tried any treatments to alleviate his symptoms. His boss's has similar symptoms. Denies IV drug use. No known allergies. No known relieving or aggravating factors. Symptoms are mild in severity. No other modifying factors or associated signs and symptoms. PFSH Past Medical History Anemia: No Asthma: No Autoimmune Disease: No Blood Disorders: Yes (low platelets) Bipolar Disorder: No Anxiety: No Depression: No Cancer: No Cardiovascular Problems: No High Cholesterol: No Chemotherapy: No Chest Pain: No Congestive Heart Failure: No COPD: Yes Cerebrovascular Accident: No Coronary Artery Disease: No Diabetes: No Diminished Hearing: No Endocrine: No Gastrointestinal Disorders: No Genitourinary: No Hepatitis: Yes (HEP C) Hypertension: No Kidney Stones: No Musculoskeletal: No Neurologic: No Psychiatric: No Reproductive: No Respiratory: Yes (COPD) Migraines: No Myocardial Infarction: No Pancreatitis: No Radiation Therapy: No Schizophrenia: No Seizures: No Sickle Cell Disease: No Thyroid Disease: No Tetanus Vaccination: Unknown Influenza Vaccination: No Past Surgical History AICD: No Appendectomy: No Arteriovenous Shunt: No Cardiac Surgery: No Cholecystectomy: No Coronary Artery Bypass Graft: No Coronary Stent: No Insulin Pump: No Joint Replacement: No Pacemaker: No Tonsillectomy: No Tympanostomy Tube: No Social History Alcohol Use: Yes Tobacco Use: Yes (1- 1 1/2 PACKS/DAY) Substance Use: Yes (H/O HEROIN, MARIJUANA) Allergies-Medications (Allergen,Severity, Reaction): Coded Allergies: No Known Allergies (Verified , 04/28/17) Reported Meds & Prescriptions Reported Meds & Active Scripts Active Ibuprofen 800 Mg Tab 800 Mg PO Q6HR PRN Bactrim DS (Sulfamethoxazole-Trimethoprim) 800-160 Mg Tab 1 Tab PO BID 10 Days Keflex (Cephalexin) 500 Mg Cap 500 Mg PO Q6H 10 Days Proventil Hfa 6.7 GM Inh (Albuterol Sulfate) 90 Mcg/Act Aer 2 Puff INH Q6H PRN Review of Systems Except as stated in HPI: all other systems reviewed are Neg Physical Exam Narrative GENERAL: Well-nourished, well-developed male patient, in no acute distress; afebrile, nontoxic-appearing; disheveled SKIN: There is an indurated area to the medial aspect of the left elbow which measures about 1cm in diameter. It is fluctuant and there is pointing, but no drainage. There is a zone of inflammation around it but no lymphangitis. HEAD: Atraumatic. Normocephalic. EYES: Pupils equal and round. No scleral icterus. No injection or drainage. ENT: Mucosa pink and moist. Airway patent. NECK: Trachea midline. CARDIOVASCULAR: Regular rate. RESPIRATORY: No accessory muscle use. GASTROINTESTINAL: Flat. MUSCULOSKELETAL: No obvious deformities. No clubbing. No cyanosis. No edema. NEUROLOGICAL: Awake and alert. Oriented 3. No obvious cranial nerve deficits. Motor grossly within normal limits. Normal speech. PSYCHIATRIC: Appropriate mood and affect; insight and judgment normal. Data Data Last Documented VS Vital Signs Date Time Temp Pulse Resp B/P (MAP) Pulse Ox O2 Delivery O2 Flow Rate FiO2 04/28/17 10:07 98.0 84 19 133/94 (107) 97 Room Air Orders Orders Wound Culture And Gram Stain (04/28/17 10:19) Tetanus/Diphtheria Tox Adult (Tetanus/Di (04/28/17 10:30) MDM Medical Decision Making Medical Screen Exam Complete: Yes Emergency Medical Condition: Yes Medical Record Reviewed: Yes Differential Diagnosis Abscess, folliculitis, cellulitis Narrative Course 47-year-old male with abscess to his left elbow area. Patient is afebrile nontoxic appearing. Denies fever, vomiting. See my procedure note for incision and drainage. Tetanus updated in the ER. Keflex, Bactrim, ibuprofen prescribed for home. Instructed patient to follow up with primary care provider. Patient verbalizes understanding and agreement with treatment plan. Patient is medically cleared and stable for discharge. Discussed reasons to return to the emergency department. Patient agrees with treatment plan. The patients vital signs are stable and the patient is stable for outpatient follow- up and treatment. Patient discharged home, stable and in no acute distress. Procedures Procedure Narrative INCISION AND DRAINAGE OF ABSCESS: The area was prepped and was sterilely draped. Ethyl chloride was used to anesthetize the area. The area was properly anesthetized. A number 11 scalpel was used to make a 0.5-cm incision across the area of the abscess. Cultures were obtained. The abscess was drained an irrigated with normal saline. Sterile dressing applied. Diagnosis Primary Impression: Abscess of left arm Referrals: Primary Care Physician Patient Instructions: Abscess (ED), Abscess Follow-up (ED), Abscess Incision and Drainage (DC), General Instructions Additional Instructions: Complete full course of antibiotics Warm compresses to the affected area Keep area clean and dry Ibuprofen or Tylenol as directed and as needed for pain and inflammation Follow-up with primary care provider Return to emergency department immediately with worsening of symptoms Med/Other Pt SpecificInfo: Prescription(s) given Scripts Ibuprofen (Ibuprofen) 800 Mg Tab 800 MG PO Q6HR Y for PAIN, #40 TAB 0 Refills Prov: Alissa Antunez 04/28/17 Sulfamethoxazole-Trimethoprim (Bactrim DS) 800-160 Mg Tab 1 TAB PO BID for Infection for 10 Days, #20 TAB 0 Refills Prov: Alissa Antunez 04/28/17 Cephalexin (Keflex) 500 Mg Cap 500 MG PO Q6H for Infection for 10 Days, #40 CAP 0 Refills Prov: Alissa Antunez 04/28/17 Disposition: 01 DISCHARGE HOME Condition: Stable Alissa Antunez Apr 28, 2017 10:19
[2017-04-28] MEDS ORDERED: TETANUS/DIPHTHERIA TOXOID ADULT 0.5 ML VIAL IM ONE (10:30)
== END 2017-04-28 11:00 | disposition home or self-care (01) ==
LOC: NEPD 09:22
DX: L02.414 Cutaneous abscess of left upper limb (principal); B95.62 Methicillin resistant Staphylococcus aureus infection as the cause of diseases classified elsewhere; B95.0 Streptococcus, group A, as the cause of diseases classified elsewhere; J44.9 Chronic obstructive pulmonary disease, unspecified; Z72.0 Tobacco use; Z23 Encounter for immunization
CPT/HCPCS: 10060; 86403; 87070; 87186; 90471; 90714

== ENCOUNTER 2017-07-12 12:45 | Emergency (ER) | payer OTHER ==
[~2017-07-12] VITALS: Ht 172.7 cm; Wt 72.5 kg
[~2017-07-12 12:45] MED LIST changes: +BACT800T5 PO; +CEPH-460 PO; -CYCL1TAB29 PO; -HYDR-3534 PO; +IBUP1TAB7 PO; -PRED-503 PO; -PRED20 PO
[2017-07-12 12:47] VITALS: BP 135/99; PULSE 99; RESP 14; TEMP 97.9; O2SAT 95
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
[2017-07-12] MEDS ORDERED: CEPH-460 PO (14:47)
== END 2017-07-12 15:55 | disposition home or self-care (01) ==
LOC: NEPD 12:45
DX: S01.81XA Laceration without foreign body of other part of head, initial encounter (principal); J44.9 Chronic obstructive pulmonary disease, unspecified; F17.200 Nicotine dependence, unspecified, uncomplicated; V17.4XXA Pedal cycle driver injured in collision with fixed or stationary object in traffic accident, initial encounter; Z86.19 Personal history of other infectious and parasitic diseases
CPT/HCPCS: 12013; 70450; 70486; 72125

== ENCOUNTER 2017-09-01 11:27 | Inpatient (IN) | payer OTHER ==
[~2017-09-01] VITALS: Ht 180.3 cm; Wt 71.6 kg
[2017-09-01] VITALS (9 sets, daily range): BP systolic 98–120; BP diastolic 55–73; PULSE 102–120; RESP 16–20; TEMP 97.2–98.7; O2SAT 97–99
[~2017-09-01 11:27] MED LIST changes: -ALBU6.7H INH; -BACT800T5 PO; -IBUP1TAB7 PO
[2017-09-01] MEDS ORDERED: RESP: ALBUTEROL 2.5 MG/IPRATROPIUM 0.5 MG NEB (SCH) INH ONE (12:15)
[2017-09-01] MEDS ORDERED: SODIUM CHLOR 0.9% 1000 ML INJ 1,000 ML IV ONE ×3 (12:15→21:00)
--- NOTE | 2017-09-01 12:21 | PD ---
HPI Chief Complaint: Respiratory Symptoms Time Seen by Provider: 12:08 Travel History International Travel<30 days: No Contact w/Intl Traveler<30days: No Traveled to known affect area: No History of Present Illness HPI 47-year-old male patient with previous history of COPD, presents to the ER today with complaints of several days of general weakness, fatigue, body aches all over, coughing, shortness of breath. He denies any chest pains, but is fairly weak in answering questions. He denies any abdominal pain or vomiting. Modifying Factors: None Associated Signs & Symptoms: General weakness, body pains all over, shortness of breath, coughing Risk Factors: None PFSH Past Medical History Anemia: No Asthma: No Autoimmune Disease: No Blood Disorders: Yes (low platelets) Bipolar Disorder: No Anxiety: No Depression: No Cancer: No Cardiovascular Problems: No High Cholesterol: No Chemotherapy: No Chest Pain: No Congestive Heart Failure: No COPD: Yes Cerebrovascular Accident: No Coronary Artery Disease: No Diabetes: No Diminished Hearing: No Endocrine: No Gastrointestinal Disorders: No Genitourinary: No Hepatitis: Yes (HEP C) Hypertension: No Kidney Stones: No Musculoskeletal: No Neurologic: No Psychiatric: No Reproductive: No Respiratory: Yes Immunizations Current: No Migraines: No Myocardial Infarction: No Pancreatitis: No Radiation Therapy: No Schizophrenia: No Seizures: No Sickle Cell Disease: No Thyroid Disease: No Past Surgical History AICD: No Appendectomy: No Arteriovenous Shunt: No Cardiac Surgery: No Cholecystectomy: No Coronary Artery Bypass Graft: No Coronary Stent: No Insulin Pump: No Joint Replacement: No Pacemaker: No Tonsillectomy: No Tympanostomy Tube: No Social History Alcohol Use: Yes Tobacco Use: Yes (1- 1 1/2 PACKS/DAY) Substance Use: Yes (H/O HEROIN, MARIJUANA) Allergies-Medications (Allergen,Severity, Reaction): Coded Allergies: No Known Allergies (Verified Allergy, Unknown, 09/01/17) Reported Meds & Prescriptions Reported Meds & Active Scripts Active No Active Prescriptions or Reported Medications Review of Systems Except as stated in HPI: all other systems reviewed are Neg Physical Exam Narrative GENERAL: Well-developed middle-age male patient currently and mild distress, somnolent, not willing to give me much history. Awake and oriented 3. SKIN: Focused skin assessment warm/dry. HEAD: Atraumatic. Normocephalic. EYES: Pupils equal and round. No scleral icterus. No injection or drainage. ENT: No nasal bleeding or discharge. Mucous membranes pink and moist. NECK: Trachea midline. No JVD. Supple. CARDIOVASCULAR: Regular rate and rhythm. No murmur appreciated. RESPIRATORY: No accessory muscle use. Clear to auscultation. Breath sounds equal bilaterally. GASTROINTESTINAL: Abdomen soft, non-tender, nondistended. Hepatic and splenic margins not palpable. MUSCULOSKELETAL: No obvious deformities. No clubbing. No cyanosis. No edema. NEUROLOGICAL: Awake and alert. No obvious cranial nerve deficits. Motor grossly within normal limits. Normal speech. PSYCHIATRIC: Appropriate mood and affect; insight and judgment normal. Data Data Last Documented VS Vital Signs Date Time Temp Pulse Resp B/P (MAP) Pulse Ox O2 Delivery O2 Flow Rate FiO2 09/01/17 14:16 98.1 108 17 102/66 (78) 98 Room Air Orders Orders Sepsis Workup Initiated (09/01/17 ) Complete Blood Count With Diff (09/01/17 12:08) Comprehensive Metabolic Panel (09/01/17 12:08) Lactic Acid Sepsis Protocol (09/01/17 12:08) Urinalysis - C+S If Indicated (09/01/17 12:08) Influenzae A/B Antigen (09/01/17 12:08) Blood Culture (09/01/17 12:08) Chest, Single Ap (09/01/17 12:08) Blood Glucose (09/01/17 12:08) Ecg Monitoring (09/01/17 12:08) Iv Access Insert/Monitor (09/01/17 12:08) Oximetry (09/01/17 12:08) Oxygen Administration (09/01/17 12:08) Sodium Chlor 0.9% 1000 Ml Inj (Ns 1000 M (09/01/17 12:15) Albuterol-Ipratropium Neb (Duoneb Neb) (09/01/17 12:15) Sodium Chlor 0.9% 1000 Ml Inj (Ns 1000 M (09/01/17 14:15) Vancomycin Inj (Vancomycin Inj) (09/01/17 14:04) Piperacil-Tazo 4.5 Gm Premix (Zosyn 4.5 (09/01/17 14:04) Admit Order (Ed Use Only) (09/01/17 15:06) Labs Laboratory Tests Test 09/01/17 12:20 09/01/17 13:15 White Blood Count 37.4 TH/MM3 Red Blood Count 5.47 MIL/MM3 Hemoglobin 18.1 GM/DL Hematocrit 52.3 % Mean Corpuscular Volume 95.6 FL Mean Corpuscular Hemoglobin 33.1 PG Mean Corpuscular Hemoglobin Concent 34.7 % Red Cell Distribution Width 14.1 % Platelet Count 114 TH/MM3 Mean Platelet Volume 9.3 FL Neutrophils (%) (Auto) 92.8 % Lymphocytes (%) (Auto) 1.6 % Monocytes (%) (Auto) 5.4 % Eosinophils (%) (Auto) 0.1 % Basophils (%) (Auto) 0.1 % Neutrophils # (Auto) 34.7 TH/MM3 Lymphocytes # (Auto) 0.6 TH/MM3 Monocytes # (Auto) 2.0 TH/MM3 Eosinophils # (Auto) 0.0 TH/MM3 Basophils # (Auto) 0.0 TH/MM3 CBC Comment AUTO DIFF Differential Total Cells Counted 100 Neutrophils % (Manual) 51 % Band Neutrophils % 29 % Lymphocytes % 1 % Monocytes % 1 % Neutrophils # (Manual) 36.7 TH/MM3 Metamyelocytes 18 % Differential Comment FINAL DIFF MANUAL Toxic Granulation 1+ Toxic Vacuolation PRESENT Platelet Estimate LOW Platelet Morphology Comment NORMAL Lactic Acid Level 2.0 mmol/L MDM Medical Decision Making Medical Screen Exam Complete: Yes Emergency Medical Condition: Yes Medical Record Reviewed: Yes Interpretation(s) Laboratory Tests Test 09/01/17 12:20 09/01/17 13:15 White Blood Count 37.4 TH/MM3 (4.0-11.0) Hemoglobin 18.1 GM/DL (13.0-17.0) Hematocrit 52.3 % (39.0-51.0) Platelet Count 114 TH/MM3 (150-450) Neutrophils (%) (Auto) 92.8 % (16.0-70.0) Lymphocytes (%) (Auto) 1.6 % (9.0-44.0) Neutrophils # (Auto) 34.7 TH/MM3 (1.8-7.7) Lymphocytes # (Auto) 0.6 TH/MM3 (1.0-4.8) Monocytes # (Auto) 2.0 TH/MM3 (0-0.9) Band Neutrophils % 29 % (0-6) Lymphocytes % 1 % (9-44) Neutrophils # (Manual) 36.7 TH/MM3 (1.8-7.7) Metamyelocytes 18 % (0-1) Toxic Granulation 1+ (NORMAL) Toxic Vacuolation PRESENT (NONE SEEN) Platelet Estimate LOW (NORMAL) Last 24 hours Impressions Chest X-Ray 09/01/17 1208 Signed Impressions: Service Date/Time: Friday, September 01, 2017 12:24 - CONCLUSION: No acute disease. Niko Alvarenga MD Differential Diagnosis Dehydration versus COPD exacerbation versus pneumonia versus sepsis versus influenza versus malingering Narrative Course Lab work shows significant leukocytosis and IV antibiotics were initiated in the ER. Influenza testing is negative. Lab work shows significant dehydration and at this point, IV fluids have been given and the plan would be to admit the patient for further treatment. Case is discussed with resident service for admission. Diagnosis Primary Impression: COPD (chronic obstructive pulmonary disease) Additional Impression: Severe sepsis Admitting Information Admitting Physician Requests: Admit Scripts No Active Prescriptions or Reported Meds Lynda Salgado MD Sep 01, 2017 12:21
--- NOTE | 2017-09-01 13:03 | RADRPT ---
EXAM DATE/TIME: 09/01/2017 12:24 [facility] COMPARISON: CHEST SINGLE AP, February 15, 2017, 8:36. INDICATIONS : Short of breath, weakness MEDICAL HISTORY : Chronic obstructive pulmonary disease. SURGICAL HISTORY : None. ENCOUNTER: Initial ACUITY: 2 days PAIN SCORE: Non-responsive. LOCATION: Bilateral chest FINDINGS: A single view of the chest demonstrates the lungs to be symmetrically aerated without evidence of mas s, infiltrate or effusion. The cardiomediastinal contours are unremarkable. Osseous structures are intact. CONCLUSION: No acute disease. Niko Alvarenga MD on September 01, 2017 at 13:00 Board Certified Radiologist. This report was verified electronically.
[2017-09-01 13:29] LABS: AUTOMATED NEUTROPHIL # 34.7 TH/MM3 (1.8-7.7); BASOPHIL % 0.1 % (0.0-2.0); EOSINOPHIL % 0.1 % (0.0-4.0); HEMATOCRIT 52.3 % (39.0-51.0); HEMOGLOBIN 18.1 GM/DL (13.0-17.0); LYMPH % 1.6 % (9.0-44.0); LYMPHOCYTE # 0.6 TH/MM3 (1.0-4.8); MEAN CELL VOLUME 95.6 FL (80.0-100.0); MEAN CORPUSCULAR HEMOGLOBIN 33.1 PG (27.0-34.0); MEAN CORPUSCULAR HGB CONC 34.7 % (32.0-36.0); MEAN PLATELET VOLUME 9.3 FL (7.0-11.0); MONO % 5.4 % (0.0-8.0); NEUT % 92.8 % (16.0-70.0); PLATELET COUNT 114 TH/MM3 (150-450); RED BLOOD COUNT 5.47 MIL/MM3 (4.50-5.90); RED CELL DISTRIBUTION WIDTH 14.1 % (11.6-17.2); WHITE BLOOD COUNT 37.4 TH/MM3 (4.0-11.0)
[2017-09-01] MEDS ORDERED: VANCOMYCIN INJ 1,000 MG in SODIUM CHLOR 0.9% 250 ML INJ 250 ML IV STA (14:04)
[2017-09-01] MEDS ORDERED: PIPERACIL-TAZO 4.5 GM PREMIX 100 ML IV STA (14:04)
[2017-09-01 14:19] LABS: BANDS 29 % (0-6); LYMPHOCYTES 1 % (9-44); METAMYELOCYTES 18 % (0-1); MONOCYTES 1 % (0-8); NEUTROPHIL # MANUAL DIFF 36.7 TH/MM3 (1.8-7.7); POLYS (SEG NEUTROPHILS) 51 % (16-70); TOXIC GRANULATION 1+ (NORMAL); TOXIC VACUOLATION PRESENT (NONE SEEN)
--- NOTE | 2017-09-01 15:12 | HHI.HP ---
HPI Service Family Medicine Primary Care Physician No Primary Care Physician Admission Diagnosis Severe sepsis Diagnoses: International Travel<30 Days: No Contact w/Intl Traveler<30days: No Known Affected Area: No History of Present Illness 47 y/o M, IVDU and possibly homeless, pmhx of Hep C and neuropathy, presents with N/V, diarrhea, weakness, and toe pain x 20 hours. He states he vomited several times a night around 8 PM and he has had 5 episodes of diarrhea. He denies eating any abnormal foods. He denies any sick contacts. Denies hematemesis or melena. He has felt fever/chills overnight and was unable to sleep because he was so uncomfortable. He last used heroin 3 days ago. He has also headache and cough with white foamy sputum since last night but has not had any acute difficulty breathing. He appears to be breathing comfortably at time of exam with no coughing. He did have pain with urination once today. He denies any change in frequency or hematuria. He states he uses heroin 1x/month. He has ever been to a rehabilitation facility and only injects into his left arm. (Zuleyka Rodrigues MD R2) Review of Systems Constitutional: COMPLAINS OF: Weight loss (230 --> 150 over 7 months, has had a workup for leukemia), DENIES: Fever Endocrine: COMPLAINS OF: Polyuria Eyes: COMPLAINS OF: Blurred vision (worse blurry vision today, blurry vision baseline from vision deterioration) Ears, nose, mouth, throat: DENIES: Nasal discharge, Oral lesions Respiratory: DENIES: Wheezing, Hemoptysis Cardiovascular: DENIES: Palpitations, Syncope Gastrointestinal: DENIES: Abdominal pain, Black stools Musculoskeletal: DENIES: Muscle aches, Stiffness Integumentary: DENIES: Pruritus, Rash Hematologic/lymphatic: DENIES: Bruising Immunologic/allergic: DENIES: Urticaria Neurologic: COMPLAINS OF: Headache (yes since last night), Localized weakness ( weakness in legs BL), Paresthesias (numb over toes), DENIES: Seizures Psychiatric: DENIES: Mood changes, Depression (Zuleyka Rodrigues MD R2) Past Family Social History Past Medical History Thrombocytopenia - investigated by oncologist in [place], no diagnosis made COPD Hepatitis C Neuropathy Past Surgical History None (Zuleyka Rodrigues MD R2) Allergies: Coded Allergies: No Known Allergies (Verified Allergy, Unknown, 09/01/17) Family History Mother - Lung cancer Social History lives in Apartment in [facility] per pt, however apt got sold and he cannot go back + smoking 1cigarette/day x 35 years, denies drinking, + heroin and cocaine (Zuleyka Rodrigues MD R2) Physical Exam Vital Signs Vital Signs Date Time Temp Pulse Resp B/P (MAP) Pulse Ox O2 Delivery O2 Flow Rate FiO2 09/01/17 14:16 98.1 108 17 102/66 (78) 98 Room Air 09/01/17 13:08 105 17 120/73 (89) 99 Room Air 09/01/17 12:10 102 18 99 Room Air 09/01/17 12:10 17 99 Room Air 09/01/17 12:10 98 Room Air 09/01/17 12:09 102 17 119/67 (84) 98 Room Air 09/01/17 11:53 97.2 120 16 99/68 (78) 99 Physical Exam GENERAL: Patient is in no acute distress. However, he is moaning sporadically throughout the exam and appears to be uncomfortable. Vital signs stable SKIN: No rashes, ecchymoses or lesions. Cool and dry. HEAD: Atraumatic. Normocephalic. No temporal or scalp tenderness. EYES: Pupils equal round and reactive. Extraocular motions intact. No scleral icterus. No injection or drainage. ENT: Nose without bleeding, purulent drainage or septal hematoma. Throat without erythema, tonsillar hypertrophy or exudate. Uvula midline. Airway patent. NECK: Trachea midline. No JVD or lymphadenopathy. Supple, nontender, no meningeal signs. CARDIOVASCULAR: Regular rate and rhythm without murmurs, gallops, or rubs. RESPIRATORY: Clear to auscultation. Breath sounds equal bilaterally. No wheezes , rales, or rhonchi. GASTROINTESTINAL: Abdomen soft, non-tender, nondistended. No hepato-splenomegaly , or palpable masses. No guarding. Positive bowel sounds MUSCULOSKELETAL: Extremities without clubbing, cyanosis, or edema. No joint tenderness, effusion, or edema noted. No calf tenderness. Negative Homans sign bilaterally. Pain on palpation of third fourth and fifth toes bilaterally NEUROLOGICAL: Awake and alert. Cranial nerves II through XII intact. Motor and sensory grossly within normal limits. Five out of 5 muscle strength in upper extremities, compared to 3 out of 5 muscle strength in lower extremities. Sensation intact. Normal speech. Laboratory Laboratory Tests Test 09/01/17 12:20 09/01/17 13:15 White Blood Count 37.4 Red Blood Count 5.47 Hemoglobin 18.1 Hematocrit 52.3 Mean Corpuscular Volume 95.6 Mean Corpuscular Hemoglobin 33.1 Mean Corpuscular Hemoglobin Concent 34.7 Red Cell Distribution Width 14.1 Platelet Count 114 Mean Platelet Volume 9.3 Neutrophils (%) (Auto) 92.8 Lymphocytes (%) (Auto) 1.6 Monocytes (%) (Auto) 5.4 Eosinophils (%) (Auto) 0.1 Basophils (%) (Auto) 0.1 Neutrophils # (Auto) 34.7 Lymphocytes # (Auto) 0.6 Monocytes # (Auto) 2.0 Eosinophils # (Auto) 0.0 Basophils # (Auto) 0.0 CBC Comment AUTO DIFF Differential Total Cells Counted 100 Neutrophils % (Manual) 51 Band Neutrophils % 29 Lymphocytes % 1 Monocytes % 1 Neutrophils # (Manual) 36.7 Metamyelocytes 18 Differential Comment FINAL DIFF MANUAL Toxic Granulation 1+ Toxic Vacuolation PRESENT Platelet Estimate LOW Platelet Morphology Comment NORMAL Lactic Acid Level 2.0 Date/Time Source Procedure Growth Status 09/01/17 13:01 Blood Peripheral Aerobic Blood Culture Pending Received 09/01/17 13:01 Blood Peripheral Anaerobic Blood Culture Pending Received 09/01/17 12:20 Nasal Washing Influenza Types A,B Antigen (PRIYANK) - Final NEGATIVE FOR FLU A AND B ANTIGEN.... Complete (Zuleyka Rodrigues MD R2) Result Diagram: 09/01/17 1220 Septic Shock Reassessment Septic shock perfusion: reassessment completed (Zuleyka Rodrigues MD R2) Caprini VTE Risk Assessment Caprini VTE Risk Assessment: No/Low Risk (score <= 1) Caprini Risk Assessment Model Point Value = 1 Point Value = 2 Point Value = 3 Point Value = 5 Age 41-60 Minor surgery BMI > 25 kg/m2 Swollen legs Varicose veins or History of unexplained or recurrent spontaneous Oral contraceptives or hormone replacement Sepsis (< 1 month) Serious lung disease, including pneumonia (< 1 month) Abnormal pulmonary function Acute myocardial infarction Congestive heart failure (< 1 month) History of inflammatory bowel disease Medical patient at bed rest Age 61-74 Arthroscopic surgery Major open surgery (> 45 min) Laparoscopic surgery (> 45 min) Malignancy Confined to bed (> 72 hours) Immobilizing plaster cast Central venous access Age >= 75 History of VTE Family history of VTE Factor V Leiden Prothrombin [id number] Lupus anticoagulant Anticardiolipin antibodies Elevated serum homocysteine Heparin-induced thrombocytopenia Other congenital or acquired thrombophilia Stroke (< 1 month) Elective arthroplasty Hip, pelvis, or leg fracture Acute spinal cord injury (< 1 month) Prophylaxis Regimen Total Risk Factor Score Risk Level Prophylaxis Regimen 0-1 Low Early ambulation 2 Moderate Order ONE of the following: *Sequential Compression Device (SCD) *Heparin 5000 units SQ BID 3-4 Higher Order ONE of the following medications: *Heparin 5000 units SQ TID *Enoxaparin/Lovenox 40 mg SQ daily (WT < 150 kg, CrCl > 30 mL/min) *Enoxaparin/Lovenox 30 mg SQ daily (WT < 150 kg, CrCl > 10-29 mL/min) *Enoxaparin/Lovenox 30 mg SQ BID (WT < 150 kg, CrCl > 30 mL/min) AND/OR *Sequential Compression Device (SCD) 5 or more Highest Order ONE of the following medications: *Heparin 5000 units SQ TID (Preferred with Epidurals) *Enoxaparin/Lovenox 40 mg SQ daily (WT < 150 kg, CrCl > 30 mL/min) *Enoxaparin/Lovenox 30 mg SQ daily (WT < 150 kg, CrCl > 10-29 mL/min) *Enoxaparin/Lovenox 30 mg SQ BID (WT < 150 kg, CrCl > 30 mL/min) AND *Sequential Compression Device (SCD) (Zuleyka Rodrigues MD R2) Assessment and Plan Assessment and Plan 47 y/o M, IVDU and possibly homeless, pmhx of Hep C and neuropathy, presents with vague flulike symptoms since last night, meeting SIRS criteria on admission. Code Status Full code Discussed Condition With Dr. Ilda Hendricks (Zuleyka Rodrigues MD R2) Attending Attestation Patient seen, examined, and discussed with resident team at admission in ER around 16:30. I agree with assessment and management as documented and discussed with me. The patient has been seen and examined. The chart and all resident notes have been reviewed. I agree that inpatient care is appropriate and that a two midnight stay is expected for the reasons documented in the resident history and physical. I have discussed this with the resident and certify the resident s order for inpatient admission. In addition, on exam: Bilateral CVAT. Pt with SIRS, unclear etiology. Consider UTI vs pneumonia vs bacteremia vs endocarditis vs drug intoxication vs drug withdrawal. Work up as ordered by resident team. (Shayna Gonsales MD) Problem List: (1) SIRS (systemic inflammatory response syndrome) ICD Codes: R65.10 - Systemic inflammatory response syndrome (SIRS) of non- infectious origin without acute organ dysfunction Status: Acute Plan: Heart rate 112, WBC 37 Possible source includes urine versus endocarditis versus acute HIV f/u UA, Ucx f/u urine GC f/u blood cx f/u HIV, RPR, Hepatitis panel Lactic acid 2.0, f/u LA trend CXR WNL (2) Neuropathy ICD Codes: G62.9 - Polyneuropathy, unspecified Status: Acute Plan: Acute on chronic per chart review Possibly related to DM vs. B12 deficiency vs. folate deficiency f/u HbA1c f/u blood glucose (3) Thrombocytopenia ICD Codes: D69.6 - Thrombocytopenia, unspecified Status: Chronic Plan: Hx of thrombocytopenia with workup by oncology, uncertain diagnosis Plt's 114 Baseline Pt 87 in 02/03 (4) COPD (chronic obstructive pulmonary disease) ICD Codes: J44.9 - Chronic obstructive pulmonary disease, unspecified Status: Chronic Plan: CXR: WNL, pt asymptomatic on exam O2 Sats WNL Duonebs q6 PRN ALbuterol q2 PRN O2 available PRN (5) Hepatitis C ICD Codes: B19.20 - Unspecified viral hepatitis C without hepatic coma Status: Chronic Plan: Chronic Hep C f/u Hep panel f/u Hep C RNA Will consider liver u/s if indication arises (6) Substance abuse ICD Codes: F19.10 - Other psychoactive substance abuse, uncomplicated Status: Chronic Plan: Smoking - Will add nicotine patch if needed Drug use - f/u UDS - CIWA protocol for precaution - Monitor VS, caution for withdrawl (7) fen/ppx Status: Chronic Plan: Fluids: Normal saline at maintenance Electrolytes: Follow-up CMP Nutrition: regular diet after passed swallow eval GI ppx: not indicated DVT ppx: SCDs, will add lovenox when CMP/Creat returns (Zuleyka Rodrigues MD R2) Physician Certification 2 Midnight Certification Type: Admission for Inpatient Services Order for Inpatient Services The services are ordered in accordance with Medicare regulations or non- Medicare payer requirements, as applicable. In the case of services not specified as inpatient-only, they are appropriately provided as inpatient services in accordance with the 2-midnight benchmark. Estimated LOS (days): 2 days is the estimated time the patient will need to remain in the hospital, assuming treatment plan goals are met and no additional complications. Post-Hospital Plan: Home (Zuleyka Rodrigues MD R2) Zuleyka Rodrigues MD R2 Sep 01, 2017 15:11 Shayna Gonsales MD Sep 01, 2017 20:53
[2017-09-01] MEDS ORDERED: RESP: IPRATROPIUM 0.5 MG/2.5 ML NEB INH PRN (16:15)
[2017-09-01] MEDS ORDERED: BISACODYL 10 MG SUPP RECTAL PRN (16:15)
[2017-09-01] MEDS ORDERED: SODIUM CHLORIDE 0.9% FLUSH 10 ML FLUSH IV FLUSH PRN (16:15)
[2017-09-01] MEDS ORDERED: LORazepam 2 MG/ML VIAL IV PUSH PRN ×4 (16:15)
[2017-09-01] MEDS ORDERED: FLUMAZENIL 0.5 MG/5 ML VIAL IV PUSH PRN (16:15)
[2017-09-01] MEDS ORDERED: Vancomycin Consult Pharmacy 1 EA OTHER SCH (16:15)
[2017-09-01] MEDS ORDERED: ACETAMINOPHEN 325 MG TAB PO PRN (16:15)
[2017-09-01] MEDS ORDERED: NALOXONE HCL 0.4 MG/ML AMP IV PUSH PRN (16:15)
[2017-09-01] MEDS ORDERED: ZOLPIDEM TARTRATE 5 MG TAB PO PRN (16:15)
[2017-09-01] MEDS ORDERED: ONDANSETRON HCL 4 MG/2 ML VIAL IVP PRN (16:15)
[2017-09-01] MEDS ORDERED: LACTULOSE SYRUP 20 GM/30 ML CUP PO PRN (16:15)
[2017-09-01] MEDS ORDERED: SENNOSIDES 8.6 MG TAB PO PRN (16:15)
[2017-09-01] MEDS ORDERED: LORazepam 2 MG TAB PO PRN (16:15)
[2017-09-01] MEDS ORDERED: MAGNESIUM HYDROXIDE SUSP 30 ML CUP PO PRN (16:15)
[2017-09-01] MEDS ORDERED: LORazepam 1 MG TAB PO PRN (16:15)
[2017-09-01] MEDS: SODIUM CHLOR 0.9% 1000 ML INJ 1,000 ML IV SCH (16:53)
[2017-09-01 16:57] LABS: BACTERIA, URINE OCC /hpf; BILIRUBIN, URINE NEG (NEG); BLOOD, URINE NEG (NEG); GLUCOSE,URINE NEG (NEG); HYALINE CAST, URINE 1 /lpf (RARE); KETONE, URINE NEG (NEG); NITRITE,URINE NEG (NEG); PH, URINE 5.5 (5.0-8.5); URINE COLOR YELLOW (YELLW/STRAW); URINE LEUKOCYTE ESTERASE NEG (NEG)
[2017-09-01 17:05] LABS: LACTIC ACID SEPSIS PROTOCOL 3.5 mmol/L (0.4-2.0)
[2017-09-01 18:57] LABS: BICARBONATE 19.5 MEQ/L (21.0-32.0); CALCIUM 6.4 MG/DL (8.5-10.1); CREATININE 1.37 MG/DL (0.60-1.30)
[2017-09-01 18:58] LABS: % SATURATION IRON PROFILE 10.9 % (20-50); IRON (FE) 21 MCG/DL (65-175); TOTAL IRON BINDING CAPACITY 192 MCG/DL (250-450)
[2017-09-01 19:14] LABS: TOTAL BILIRUBIN ADULT 2.2 MG/DL (0.2-1.0); TOTAL PROTEIN 5.1 GM/DL (6.4-8.2)
[2017-09-01 19:17] LABS: CALCIUM-PROTEIN CORRECTED 7.4 MG/DL (8.5-10.1)
[2017-09-01] MEDS ORDERED: CALCIUM GLUCONATE 10% 1 GM/10 ML VIAL IV PUSH ONE (19:45)
[2017-09-01] MEDS: PIPERACIL-TAZO 4.5 GM PREMIX 100 ML IV SCH (21:04)
[2017-09-01] MEDS: SODIUM CHLORIDE 0.9% FLUSH 10 ML FLUSH IV FLUSH SCH (21:09)
[2017-09-01 22:29] LABS: HEMOGLOBIN A1C 5.7 % (4.3-6.0)
[2017-09-02] VITALS (10 sets, daily range): BP systolic 106–130; BP diastolic 56–91; PULSE 70–101; RESP 18–21; TEMP 97.6–98.7; O2SAT 92–98
[2017-09-02] MEDS: PIPERACIL-TAZO 4.5 GM PREMIX 100 ML IV SCH ×4 (01:04→21:13)
[2017-09-02] MEDS: SODIUM CHLOR 0.9% 1000 ML INJ 1,000 ML IV SCH ×4 (03:21→22:43)
[2017-09-02] MEDS: RESP: ALBUTEROL 2.5 MG/3 ML NEB (PRN) INH (04:17)
[2017-09-02 05:45] LABS: AUTOMATED NEUTROPHIL # 24.5 TH/MM3 (1.8-7.7); BASOPHIL # 0.1 TH/MM3 (0-0.2); BASOPHIL % 0.3 % (0.0-2.0); EOSINOPHIL # 0.1 TH/MM3 (0-0.4); EOSINOPHIL % 0.4 % (0.0-4.0); HEMATOCRIT 42.9 % (39.0-51.0); HEMOGLOBIN 14.8 GM/DL (13.0-17.0); LYMPH % 5.1 % (9.0-44.0); LYMPHOCYTE # 1.4 TH/MM3 (1.0-4.8); MEAN CELL VOLUME 96.2 FL (80.0-100.0); MEAN CORPUSCULAR HEMOGLOBIN 33.3 PG (27.0-34.0); MEAN CORPUSCULAR HGB CONC 34.6 % (32.0-36.0); MEAN PLATELET VOLUME 9.4 FL (7.0-11.0); MONO % 5.3 % (0.0-8.0); MONOCYTE # 1.5 TH/MM3 (0-0.9); NEUT % 88.9 % (16.0-70.0); PLATELET COUNT 79 TH/MM3 (150-450); RED BLOOD COUNT 4.46 MIL/MM3 (4.50-5.90); WHITE BLOOD COUNT 27.5 TH/MM3 (4.0-11.0)
[2017-09-02 06:13] LABS: ALBUMIN 2.4 GM/DL (3.4-5.0); AST (GOT) 96 U/L (15-37); BICARBONATE 25.1 MEQ/L (21.0-32.0); BLOOD UREA NITROGEN 27 MG/DL (7-18); CALCIUM 7.7 MG/DL (8.5-10.1); CHLORIDE 111 MEQ/L (98-107); CREATININE 1.33 MG/DL (0.60-1.30); GLOMERULAR FILTRATION RATE 57 ML/MIN (>89); GLUCOSE,RANDOM 66 MG/DL (74-106); SODIUM (NA) 142 MEQ/L (136-145)
[2017-09-02 06:14] LABS: ALT (GPT) 105 U/L (12-78)
[2017-09-02 06:16] LABS: ALKALINE PHOSPHATASE 83 U/L (45-117); TOTAL BILIRUBIN ADULT 2.1 MG/DL (0.2-1.0)
[2017-09-02 06:53] LABS: INTERNATIONAL NORMALIZED RATIO 1.4 RATIO
[2017-09-02 07:05] LABS: BANDS 40 % (0-6); LYMPHOCYTES 4 % (9-44); METAMYELOCYTES 6 % (0-1); MONOCYTES 3 % (0-8); NEUTROPHIL # MANUAL DIFF 25.6 TH/MM3 (1.8-7.7); POLYS (SEG NEUTROPHILS) 47 % (16-70)
[2017-09-02 07:06] LABS: TOXIC GRANULATION 1+ (NORMAL); TOXIC VACUOLATION PRESENT (NONE SEEN)
[2017-09-02] MEDS: ENOXAPARIN SODIUM 30 MG/0.3 ML SYRINGE SQ SCH (08:00)
[2017-09-02] MEDS: SODIUM CHLORIDE 0.9% FLUSH 10 ML FLUSH IV FLUSH SCH ×2 (08:20→21:00)
[2017-09-02] MEDS: VANCOMYCIN INJ 1,100 MG in SODIUM CHLOR 0.9% 250 ML INJ 250 ML IV SCH (09:05)
--- NOTE | 2017-09-02 11:05 | RADRPT ---
EXAM DATE/TIME: 09/02/2017 09:13 [facility] COMPARISON: No previous studies available for comparison. INDICATIONS : Cirrhosis. MEDICAL HISTORY : Chronic obstructive pulmonary disease. Gastroesophageal reflux disease. Hepatitis C. Dyspnea. Headach e. Weakness. Polyuria. Paresthesia. Thrombocytopenia. Neuropathy. Tobacco use. MRSA. SURGICAL HISTORY : None. ENCOUNTER: Initial ACUITY: 3 days PAIN SCORE: 3/10 LOCATION: Bilateral upper quadrant MEASUREMENTS: LIVER: 16.2 cm length COMMON DUCT: 7 mm RIGHT KIDNEY: 10.6 x 5.7 x 5.2 cm SPLEEN: 12.9 cm length FINDINGS: LIVER: Diffusely increased hepatic echogenicity without significant volume loss, intra-hepatic ductal dilata tion or focal mass. Main portal vein is patent and hepatopedal. COMMON DUCT: No intraluminal mass or stone visualized. GALLBLADDER: Mild gallbladder wall thickening. Probable trace sludge. No stones or polyps. No pericholecystic flui d. PANCREAS: The visualized portions are within normal limits. RIGHT KIDNEY: No hydronephrosis, stone or mass. SPLEEN: Borderline enlarged. there is no focal lesion. CONCLUSION: 1. Diffusely increased hepatic echogenicity without significant volume loss. Findings likely reflect early cirrhosis in this patient with history of hepatitis C. 2. No focal hepatic mass. Patent portal vein. 3. Borderline splenomegaly suggests some degree of portal hypertension. No ascites. 4. Mild gallbladder wall thickening, likely due to chronic liver disease. Probable trace gallbladder sludge. Nilay Crocker MD on September 02, 2017 at 10:59 Board Certified Radiologist. This report was verified electronically.
[2017-09-02 11:21] LABS: HEPATITIS A AB IGM NEGATIVE (NEGATIVE); HEPATITIS B CORE AB IGM NEGATIVE (NEGATIVE); HEPATITIS B SURFACE ANTIGEN NEGATIVE (NEGATIVE); HEPATITIS C AB IgG REACTIVE (NEGATIVE)
--- NOTE | 2017-09-02 15:28 | HHI.FPPN ---
Subjective Remarks Patient seen and examined this morning with the team. Patient states that he is doing better today. He continues to experience coughing and mild shortness of breath, however he states that this is a chronic issue for him. He continues to complain of leg myalgias. He denies any fever/chills overnight. He denies any chest pain/dizziness. (Zuleyka Rodrigues MD R2) Objective Vitals Vital Signs Date Time Temp Pulse Resp B/P (MAP) Pulse Ox O2 Delivery O2 Flow Rate FiO2 09/02/17 12:00 98.1 94 20 107/68 (81) 96 09/02/17 10:07 97 09/02/17 09:35 92 09/02/17 08:00 97.7 95 20 117/60 (79) 92 09/02/17 04:00 91 09/02/17 04:00 97.6 88 21 107/66 (80) 96 09/02/17 00:00 98.7 101 20 106/56 (73) 98 09/02/17 00:00 95 09/01/17 23:00 97 Room Air 09/01/17 22:49 98.7 105 20 100/58 (72) 97 09/01/17 20:00 Room Air 09/01/17 20:00 114 09/01/17 20:00 98.4 111 16 98/55 (69) 98 09/01/17 18:25 98.2 108 17 108/73 (85) 98 09/01/17 16:34 98.0 112 16 102/66 (78) 97 Room Air I/O 09/01/17 09/01/17 09/01/17 09/02/17 09/02/17 09/02/17 06:59 14:59 22:59 06:59 14:59 22:59 Intake Total 1500 ml 1250 ml 240 ml 480 ml Output Total 800 ml 700 ml Balance 1500 ml 450 ml -460 ml 480 ml Intake Oral 400 ml 240 ml 480 ml IV Total 1100 ml 1250 ml Output Urine Total 800 ml 700 ml # Voids 1 3 # Bowel Movements 0 0 1 (Zuleyka Rodrigues MD R2) Result Diagram: 09/02/17 0450 09/02/17 0450 Objective Remarks GENERAL: Laying down, appears to be comfortable on today's exam SKIN: Warm and dry. HEAD: Normocephalic. EYES: No scleral icterus. No injection or drainage. NECK: Supple, trachea midline. No JVD or lymphadenopathy. CARDIOVASCULAR: Regular rate and rhythm without murmurs, gallops, or rubs. RESPIRATORY: Breath sounds equal bilaterally, slightly diminished breath sounds at bases. No accessory muscle use. GASTROINTESTINAL: Abdomen soft, non-tender, nondistended. MUSCULOSKELETAL: No cyanosis, or edema. Tenderness to deep palpation of calves bilaterally. No erythema or swelling of extremities. BACK: Nontender without obvious deformity. No CVA tenderness. No spinal tenderness. (Zuleyka Rodrigues MD R2) A/P Assessment and Plan 47 y/o M, IVDU and possibly homeless, pmhx of Hep C and neuropathy, presents with vague flulike symptoms since last night, meeting SIRS criteria on admission. Pt continues to be tachycardic with leukocytosis Discharge Planning Pending clinical improvement (Zuleyka Rodrigues MD R2) Attending Attestation Patient seen, examined, and discussed with resident team around 11:00 this morning. I agree with assessment and management as documented and discussed with me. Pt reports feeling better overall. Vital signs have improved. Await cultures. Continue antibiotics. (Shayna Gonsales MD) Problem List: (1) SIRS (systemic inflammatory response syndrome) ICD Codes: R65.10 - Systemic inflammatory response syndrome (SIRS) of non- infectious origin without acute organ dysfunction Status: Acute Plan: On Admission: Heart rate 112, WBC 37 Today: HR 95-105, WBC 27 Possible source includes urine versus endocarditis versus acute HIV UA: negative Urine G/C negative f/u Ucx f/u blood cx f/u HIV, RPR, Hepatitis panel Lactic acid trend: 1.7 --> 3.5 --> 2.0 CXR WNL (2) Neuropathy ICD Codes: G62.9 - Polyneuropathy, unspecified Status: Acute Plan: Acute on chronic per chart review Possibly related to DM vs. B12 deficiency vs. folate deficiency HbA1c: 5.7 blood glucose: 73, 66 (3) Thrombocytopenia ICD Codes: D69.6 - Thrombocytopenia, unspecified Status: Chronic Plan: Hx of thrombocytopenia with workup by oncology, uncertain diagnosis Plt's 114, 79 Baseline Pt 87 in 02/03 (4) COPD (chronic obstructive pulmonary disease) ICD Codes: J44.9 - Chronic obstructive pulmonary disease, unspecified Status: Chronic Plan: Continued cough and shortness of breath per patient CXR: WNL, pt asymptomatic on exam O2 Sats WNL Duonebs q6 scheduled ALbuterol q2 PRN Add Symbicort O2 available PRN f/u PPD (5) Hepatitis C ICD Codes: B19.20 - Unspecified viral hepatitis C without hepatic coma Status: Chronic Plan: Chronic Hep C f/u Hep panel f/u Hep C RNA Liver ultrasound: Diffusely increased hepatic echogenicity, early cirrhosis. Her lines splenomegaly suggests some degree of portal hypertension. No ascites. (6) Substance abuse ICD Codes: F19.10 - Other psychoactive substance abuse, uncomplicated Status: Chronic Plan: Smoking - Will add nicotine patch if needed Drug use -UDS: Positive cocaine - [facility] protocol for precaution - Monitor VS, caution for withdrawl (7) fen/ppx Status: Chronic Plan: Fluids: Normal saline at maintenance Electrolytes: Follow-up CMP Nutrition: regular diet after passed swallow eval GI ppx: not indicated DVT ppx: SCDs, will add lovenox when CMP/Creat returns (Zuleyka Rodrigues MD R2) Zuleyka Rodrigues MD R2 Sep 02, 2017 15:28 Shayna Gonsales MD Sep 02, 2017 16:50
[2017-09-02] MEDS: RESP: ALBUTEROL 2.5 MG/IPRATROPIUM 0.5 MG NEB (SCH) INH ×2 (16:53→21:35)
[2017-09-02] MEDS ORDERED: TUBERCULIN, PPD 5 UNITS/0.1 ML SYRINGE I-DERMAL ONE (18:00)
[2017-09-02] MEDS: BUDESONIDE-FORMOTEROL 160/4.5 MCG INHALER INH SCH (21:11)
[2017-09-03] VITALS (11 sets, daily range): BP systolic 117–143; BP diastolic 63–84; PULSE 73–87; RESP 16–20; TEMP 97.6–98; O2SAT 93–99
[2017-09-03] MEDS: PIPERACIL-TAZO 4.5 GM PREMIX 100 ML IV SCH ×4 (02:09→19:55)
[2017-09-03] MEDS: VANCOMYCIN INJ 1,100 MG in SODIUM CHLOR 0.9% 250 ML INJ 250 ML IV SCH ×2 (02:11→20:18)
[2017-09-03] MEDS: SODIUM CHLOR 0.9% 1000 ML INJ 1,000 ML IV SCH ×2 (02:12→19:15)
[2017-09-03] MEDS: RESP: ALBUTEROL 2.5 MG/IPRATROPIUM 0.5 MG NEB (SCH) INH ×4 (04:00→21:02)
[2017-09-03] MEDS: RESP: ALBUTEROL 2.5 MG/3 ML NEB (PRN) INH (06:30)
[2017-09-03] MEDS: ENOXAPARIN SODIUM 30 MG/0.3 ML SYRINGE SQ SCH (08:00)
[2017-09-03] MEDS: SODIUM CHLORIDE 0.9% FLUSH 10 ML FLUSH IV FLUSH SCH ×2 (09:00→20:18)
[2017-09-03] MEDS: BUDESONIDE-FORMOTEROL 160/4.5 MCG INHALER INH SCH ×2 (09:00→19:58)
--- NOTE | 2017-09-03 09:29 | EKG ---
Date Performed: 09/01/2017 Time Performed: 16:45:11 PTAGE: 47 years EKG: SINUS TACHYCARDIA MODERATE T-WAVE ABNORMALITY, CONSIDER ANTERIOR ISCHEMIA ABNORMAL ECG NO PREVIOUS TRACING DOCTOR: Ciaran Vidal Interpretating Date/Time 09/03/2017 09:29:05
--- NOTE | 2017-09-03 09:30 | EKG ---
Date Performed: 09/02/2017 Time Performed: 09:55:20 PTAGE: 47 years EKG: Sinus rhythm NONSPECIFIC T-WAVE ABNORMALITY BORDERLINE ECG PREVIOUS TRACING : 09/01/2017 16.45 Since prior tracing, sinus rate is slower. Previously seen ST changes have improved. DOCTOR: Ciaran Vidal Interpretating Date/Time 09/03/2017 09:29:28
--- NOTE | 2017-09-03 09:55 | HHI.FPPN ---
Subjective Remarks Patient seen and examined bedside this morning. Patient is up and walking around and states he feels much better; he is more alert and awake than prior. He has been eating little bedside at time without great difficulty. He has not had any nausea or vomiting. He has been ambulating well. He denies any chest pain/chest breath/dizziness. He continues to have daily diarrhea. (Zuleyka Rodrigues MD R2) Objective Vitals Vital Signs Date Time Temp Pulse Resp B/P (MAP) Pulse Ox O2 Delivery O2 Flow Rate FiO2 09/03/17 08:25 98.0 87 20 134/84 (101) 97 09/03/17 04:09 84 09/03/17 04:00 97.8 78 18 117/71 (86) 98 09/03/17 00:10 84 09/03/17 00:00 97.6 80 16 124/63 (83) 98 09/02/17 21:34 98 09/02/17 20:45 Room Air 09/02/17 20:02 82 09/02/17 20:00 98.2 78 18 129/82 (98) 98 09/02/17 16:00 70 09/02/17 16:00 98.4 80 20 130/91 (104) 96 09/02/17 12:00 90 09/02/17 12:00 98.1 94 20 107/68 (81) 96 09/02/17 10:07 97 I/O 09/02/17 09/02/17 09/02/17 09/03/17 09/03/17 09/03/17 07:00 15:00 23:00 07:00 15:00 23:00 Intake Total 240 ml 480 ml 1105 ml 1192 ml Output Total 700 ml Balance -460 ml 480 ml 1105 ml 1192 ml Intake Oral 240 ml 480 ml IV Total 1105 ml 1192 ml Output Urine Total 700 ml # Voids 3 1 # Bowel Movements 1 1 (Zuleyka Rodrigues MD R2) Result Diagram: 09/02/17 0450 09/02/17 0450 Objective Remarks GENERAL: Laying down, appears to be comfortable on today's exam SKIN: Warm and dry. HEAD: Normocephalic. EYES: No scleral icterus. No injection or drainage. NECK: Supple, trachea midline. No JVD or lymphadenopathy. CARDIOVASCULAR: Regular rate and rhythm with 1 to 2/6 systolic murmur, no gallops, or rubs. RESPIRATORY: Breath sounds equal bilaterally, slightly diminished breath sounds at bases. No accessory muscle use. GASTROINTESTINAL: Abdomen soft, non-tender, nondistended. MUSCULOSKELETAL: No cyanosis, or edema. Tenderness to deep palpation of calves bilaterally. No erythema or swelling of extremities. BACK: Nontender without obvious deformity. No CVA tenderness. No spinal tenderness. (Zuleyka Rodrigues MD R2) A/P Assessment and Plan 47 y/o M, IVDU and possibly homeless, pmhx of Hep C and neuropathy, presents with vague flulike symptoms since last night, meeting SIRS criteria on admission. Discharge Planning Pending clinical improvement (Zuleyka Rodrigues MD R2) Attending Attestation Patient seen and examined at 0745 on rounds; discussed with resident team. I agree with assessment and management as documented and discussed with me. PT reports feeling much better. He reports some continued diarrhea. No abdominal pain. Continue antibiotics until cultures negative. (Shayna Gonsales MD) Problem List: (1) Heart murmur ICD Codes: R01.1 - Cardiac murmur, unspecified Status: Acute Plan: Heart murmur on auscultation today Follow up echo (2) SIRS (systemic inflammatory response syndrome) ICD Codes: R65.10 - Systemic inflammatory response syndrome (SIRS) of non- infectious origin without acute organ dysfunction Status: Resolved Plan: On Admission: Heart rate 112, WBC 37, Lactic acid trend: 1.7 --> 3.5 --> 2.0 Today: HR 87, follow-up CBC Possible source includes urine versus endocarditis versus acute HIV UA: negative Urine G/C negative f/u Ucx: No growth in 24 hours f/u blood cx: No growth in one day f/u HIV, RPR, Hepatitis panel - HIV 1 and 2 antibodies negative - RPR negative - f/u HIV RNA - Follow-up HCV RNA (3) Neuropathy ICD Codes: G62.9 - Polyneuropathy, unspecified Status: Acute Plan: Acute on chronic per chart review Symptoms have improved since time of admission Unsure of etiology, workup as follows HbA1c: 5.7 blood glucose: 73, 66 Vitamin B12: Normal (4) Thrombocytopenia ICD Codes: D69.6 - Thrombocytopenia, unspecified Status: Chronic Plan: Hx of thrombocytopenia with workup by oncology, uncertain diagnosis Follow-up CBC this morning Plt's 114, 79 Baseline Pt 87 in 02/03 (5) COPD (chronic obstructive pulmonary disease) ICD Codes: J44.9 - Chronic obstructive pulmonary disease, unspecified Status: Chronic Plan: Continued cough and shortness of breath per patient CXR: WNL, pt asymptomatic on exam O2 Sats WNL Duonebs q6 scheduled ALbuterol q2 PRN Add Symbicort O2 available PRN f/u PPD (6) Hepatitis C ICD Codes: B19.20 - Unspecified viral hepatitis C without hepatic coma Status: Chronic Plan: Chronic Hep C Follow-up LFT trend f/u Hep panel f/u Hep C RNA Liver ultrasound: Diffusely increased hepatic echogenicity, early cirrhosis. Her lines splenomegaly suggests some degree of portal hypertension. No ascites. (7) Substance abuse ICD Codes: F19.10 - Other psychoactive substance abuse, uncomplicated Status: Chronic Plan: Smoking - Will add nicotine patch if needed Drug use -UDS: Positive cocaine - [facility] protocol for precaution - Monitor VS, caution for withdrawl (8) fen/ppx Status: Chronic Plan: Fluids: Normal saline at maintenance Electrolytes: Follow-up CMP Nutrition: regular diet after passed swallow eval GI ppx: not indicated DVT ppx: SCDs, lovenox 30 SQ (pt refusing) (Zuleyka Rodrigues MD R2) Zuleyka Rodrigues MD R2 Sep 03, 2017 09:55 Shayna Gonsales MD Sep 03, 2017 20:21
--- NOTE | 2017-09-03 10:36 | RADRPT ---
EXAM DATE/TIME: 09/03/2017 09:28 [facility] COMPARISON: No previous studies available for comparison. INDICATIONS : Embolism. MEDICAL HISTORY : Chronic obstructive pulmonary disease. Gastroesophageal reflux disease. Hepatitis C. Dyspnea. Headach e. Weakness. Polyuria. Paresthesia. Thrombocytopenia. Neuropathy. Tobacco use. MRSA. SURGICAL HISTORY : None. ENCOUNTER: Initial ACUITY: 3 days PAIN SCORE: 2/10 LOCATION: Bilateral legs. TECHNIQUE: Venous ultrasound of the left and right leg was performed from the inguinal ligament to the proximal calf. Real-time, color Doppler and spectral tracing, compression and augmentation techniques were us ed. FINDINGS: RIGHT LEG: There is normal compressibility of the deep venous system from the inguinal region to the proximal ca lf. No echogenic clot is seen in the lumen of the common femoral, femoral, popliteal, and posterior tibial veins. There is a normal response of the venous system to proximal and distal augmentation an d respiration. LEFT LEG: There is normal compressibility of the deep venous system from the inguinal region to the proximal ca lf. No echogenic clot is seen in the lumen of the common femoral, femoral, popliteal, and posterior tibial veins. There is a normal response of the venous system to proximal and distal augmentation an d respiration. CONCLUSION: Negative for fracture or dislocation. Follow up in 7-10 days is suggested if symptoms persist. Meir Hudson MD FACR on September 03, 2017 at 10:33 Board Certified Radiologist. This report was verified electronically.
[2017-09-03 12:18] LABS: BASOPHIL % 0.4 % (0.0-2.0); EOSINOPHIL # 0.1 TH/MM3 (0-0.4); EOSINOPHIL % 0.5 % (0.0-4.0); HEMATOCRIT 41.6 % (39.0-51.0); HEMOGLOBIN 14.3 GM/DL (13.0-17.0); LYMPH % 10.3 % (9.0-44.0); LYMPHOCYTE # 1.3 TH/MM3 (1.0-4.8); MEAN CELL VOLUME 96.6 FL (80.0-100.0); MEAN CORPUSCULAR HEMOGLOBIN 33.1 PG (27.0-34.0); MEAN CORPUSCULAR HGB CONC 34.2 % (32.0-36.0); MEAN PLATELET VOLUME 9.2 FL (7.0-11.0); MONO % 3.7 % (0.0-8.0); MONOCYTE # 0.5 TH/MM3 (0-0.9); NEUT % 85.1 % (16.0-70.0); PLATELET COUNT 65 TH/MM3 (150-450); RED BLOOD COUNT 4.31 MIL/MM3 (4.50-5.90); RED CELL DISTRIBUTION WIDTH 14.1 % (11.6-17.2)
[2017-09-03 12:46] LABS: ALBUMIN 2.4 GM/DL (3.4-5.0); ALKALINE PHOSPHATASE 75 U/L (45-117); ALT (GPT) 79 U/L (12-78); AST (GOT) 61 U/L (15-37); BICARBONATE 23.8 MEQ/L (21.0-32.0); BLOOD UREA NITROGEN 15 MG/DL (7-18); CALCIUM 7.8 MG/DL (8.5-10.1); CHLORIDE 116 MEQ/L (98-107); CREATININE 0.96 MG/DL (0.60-1.30); GLOMERULAR FILTRATION RATE 83 ML/MIN (>89); GLUCOSE,RANDOM 95 MG/DL (74-106); SODIUM (NA) 145 MEQ/L (136-145); TOTAL BILIRUBIN ADULT 0.8 MG/DL (0.2-1.0); TOTAL PROTEIN 6.2 GM/DL (6.4-8.2)
[2017-09-03 13:03] LABS: BANDS 17 % (0-6); LYMPHOCYTES 7 % (9-44); MONOCYTES 3 % (0-8); MYELOCYTES 1 % (0-0); NEUTROPHIL # MANUAL DIFF 11.7 TH/MM3 (1.8-7.7); POLYS (SEG NEUTROPHILS) 72 % (16-70)
[2017-09-03 13:04] LABS: TOXIC GRANULATION 1+ (NORMAL); TOXIC VACUOLATION PRESENT (NONE SEEN)
--- NOTE | 2017-09-03 18:04 | ECHRPT ---
Indication: SEPSIS ENDOCARDITIS CONCLUSIONS Normal left ventricular size. Wall thickness is normal. The left ventricular systolic function is borderline normal with an estimated ejection fraction of 5 0%. Atrial septal aneurysm is present (benign finding). [id number] mitral valve regurgitation. A moderate left sided pleural effusion is noted. BP: / HR: Rhythm: MEASUREMENTS (Male / Female) Normal Values Technical Quality:Good 2D ECHO LV Diastolic Diameter PLAX 4.4 cm 4.2 - 5.9 / 3.9 - 5.3 cm LV Systolic Diameter PLAX 3.6 cm IVS Diastolic Thickness 0.8 cm 0.6 - 1.0 / 0.6 - 0.9 cm LVPW Diastolic Thickness 0.7 cm 0.6 - 1.0 / 0.6 - 0.9 cm LV Relative Wall Thickness 0.3 LA Systolic Diameter LX 3.9 cm 3.0 - 4.0 / 2.7 - 3.8 cm DOPPLER AV Peak Velocity 167.0 cm/s AV Peak Gradient 11.2 mmHg MR Peak Velocity 371.0 cm/s MR Peak Gradient 55.1 mmHg Mitral E Point Velocity 80.5 cm/s Mitral A Point Velocity 69.6 cm/s Mitral E to A Ratio 1.2 TR Peak Velocity 235.0 cm/s TR Peak Gradient 22.1 mmHg FINDINGS LEFT VENTRICLE Normal left ventricular size. Wall thickness is normal. The left ventricular systolic function is borderline normal with an estimated ejection fraction of 5 0%. RIGHT VENTRICLE Normal right ventricular size and systolic function. LEFT ATRIUM The left atrial size is normal. RIGHT ATRIUM The right atrial size is normal. ATRIAL SEPTUM Atrial septal aneurysm is present (benign finding). AORTA The aortic root and proximal ascending aorta are normal in size on limited imaging. MITRAL VALVE [id number] mitral valve regurgitation. AORTIC VALVE Trileaflet aortic valve. No aortic valve stenosis or regurgitation. TRICUSPID VALVE Structurally normal tricuspid valve. No tricuspid valve stenosis or regurgitation. PULMONARY VALVE The pulmonary valve is not well visualized. VESSELS The inferior vena cava is normal in size. PERICARDIUM A moderate left sided pleural effusion is noted. Jacqui Chang MD, FACC (Electronically Signed) Final Date:03 September 2017 18:03
[2017-09-03] MEDS ORDERED: PHARMACY ORDERED LAB ONE (20:45)
[2017-09-04] VITALS (7 sets, daily range): BP systolic 131–154; BP diastolic 72–95; PULSE 75–100; RESP 17–20; TEMP 97.6–98.2; O2SAT 97–99
[2017-09-04] MEDS: PIPERACIL-TAZO 4.5 GM PREMIX 100 ML IV SCH ×2 (01:07→08:26)
[2017-09-04] MEDS: SODIUM CHLOR 0.9% 1000 ML INJ 1,000 ML IV SCH (01:08)
[2017-09-04] MEDS: RESP: ALBUTEROL 2.5 MG/IPRATROPIUM 0.5 MG NEB (SCH) INH ×2 (03:59→07:38)
[2017-09-04] MEDS ORDERED: VANCOMYCIN 1 GM/200 ML PREMIX IV SCH (06:00)
[2017-09-04] MEDS ORDERED: VANCOMYCIN 1,000 MG/NS 250 ML IV SCH ×2 (06:00)
[2017-09-04] MEDS: ENOXAPARIN SODIUM 30 MG/0.3 ML SYRINGE SQ SCH (08:25)
[2017-09-04] MEDS: BUDESONIDE-FORMOTEROL 160/4.5 MCG INHALER INH SCH (08:28)
[2017-09-04] MEDS: SODIUM CHLORIDE 0.9% FLUSH 10 ML FLUSH IV FLUSH SCH (08:28)
[2017-09-04] MEDS ORDERED: POTASSIUM CHLORIDE 20 MEQ CONTROLLED RELEASE TAB PO ONE (09:00)
[2017-09-04] MEDS ORDERED: LEVA750T9 PO (09:01)
--- NOTE | 2017-09-04 09:45 | RADRPT ---
EXAM DATE/TIME: 09/04/2017 09:31 [facility] COMPARISON: No previous studies available for comparison. INDICATIONS : Cough and short of breath. MEDICAL HISTORY : Chronic obstructive pulmonary disease. SURGICAL HISTORY : None. ENCOUNTER: Subsequent ACUITY: 4 - 6 days PAIN SCORE: 0/10 LOCATION: Bilateral chest FINDINGS: PA and lateral views of the chest demonstrate the lungs to be symmetrically aerated without evidence of mass, infiltrate or effusion. The cardiomediastinal contours are unremarkable. Osseous structure s are intact. CONCLUSION: No acute disease. Huey Patricio Jr., MD on September 04, 2017 at 9:41 Board Certified Radiologist. This report was verified electronically.
--- NOTE | 2017-09-04 11:13 | HHI.FPPN ---
Subjective Remarks No acute events overnight. Patient states he is feeling 100% better. He continues to have diarrhea and upset stomach, but has been able to eat more food with no nausea or vomiting. Otherwise he is feeling much better and denies shortness of breath, chest pain. (Vinay Gomes MD R1) Objective Vitals Vital Signs Date Time Temp Pulse Resp B/P (MAP) Pulse Ox O2 Delivery O2 Flow Rate FiO2 09/04/17 08:06 97.7 77 17 154/86 (108) 97 09/04/17 04:00 98.2 80 20 132/72 (92) 98 09/04/17 03:54 75 09/04/17 00:00 98.1 100 18 131/76 (94) 99 09/03/17 23:46 82 09/03/17 21:03 99 21 09/03/17 20:04 79 09/03/17 19:30 Room Air 09/03/17 16:06 97.9 73 17 143/83 (103) 99 09/03/17 12:00 97.7 77 20 141/83 (102) 93 I/O 09/03/17 09/03/17 09/03/17 09/04/17 09/04/17 09/04/17 07:00 15:00 23:00 07:00 15:00 23:00 Intake Total 1192 ml 1095 ml 1750 ml Balance 1192 ml 1095 ml 1750 ml Intake Oral 720 ml IV Total 1192 ml 375 ml 1750 ml # Voids 1 4 # Bowel Movements 1 (Vinay Gomes MD R1) Result Diagram: 09/03/17 1205 09/03/17 1205 Objective Remarks GENERAL: Patient seen walking around room in no acute distress. Comfortable on today's exam SKIN: Warm and dry. HEAD: Normocephalic. EYES: No scleral icterus. No injection or drainage. NECK: Supple, trachea midline. No JVD or lymphadenopathy. CARDIOVASCULAR: Regular rate and rhythm with no murmurs appreciated RESPIRATORY: Breath sounds equal bilaterally, slightly diminished breath sounds at bases. No accessory muscle use. GASTROINTESTINAL: Abdomen soft, non-tender, nondistended. MUSCULOSKELETAL: No cyanosis, or edema. No erythema or swelling of extremities. BACK: Nontender without obvious deformity. No CVA tenderness. No spinal tenderness. (Vinay Gomes MD R1) A/P Assessment and Plan 47 y/o M, IVDU and possibly homeless, pmhx of Hep C and neuropathy, presents with vague flulike symptoms since last night, meeting SIRS criteria on admission. Discharge Planning Pending clinical improvement, likely on 09/05 (Vinay Gomes MD R1) Attending Attestation Patient seen, examined, and discussed with Dr. Gomes during rounds this morning. I agree with assessment and management as documented and discussed with me. Pt reports feeling "100% better." Await repeat CXR to follow up on pleural effusion seen on echo yesterday. Pt denies SOB. Possible discharge today or tomorrow, pending CXR result. (Shayna Gonsales MD) Problem List: (1) SIRS (systemic inflammatory response syndrome) ICD Codes: R65.10 - Systemic inflammatory response syndrome (SIRS) of non- infectious origin without acute organ dysfunction Status: Resolved Plan: On Admission: Heart rate 112, WBC 37, Lactic acid trend: 1.7 --> 3.5 --> 2.0 Today: HR 77, follow-up CBC, WBC 13.0 on 09/03 Possible source includes urine versus endocarditis versus acute HIV versus pneumonia UA: negative Urine G/C negative f/u Ucx: No growth in 48 hours f/u blood cx: No growth in 48 hours f/u HIV, RPR, Hepatitis panel - HIV 1 and 2 antibodies negative - RPR negative - f/u HIV RNA - Follow-up HCV RNA - Legionella, pneumococcal urinary antigens pending - Respiratory panel pending (2) Neuropathy ICD Codes: G62.9 - Polyneuropathy, unspecified Status: Acute Plan: Acute on chronic per chart review Symptoms have improved since time of admission Unsure of etiology, workup as follows HbA1c: 5.7 blood glucose: 73, 66 Vitamin B12: Normal (3) Heart murmur ICD Codes: R01.1 - Cardiac murmur, unspecified Status: Acute Plan: Heart murmur on auscultation on 09/03 Not appreciated on 09/04, the patient said rest for endocarditis as he is an IV drug user Echocardiogram did not show vegetations, normal ejection fraction. Moderate left -sided pleural effusion (4) Thrombocytopenia ICD Codes: D69.6 - Thrombocytopenia, unspecified Status: Chronic Plan: Hx of thrombocytopenia with workup by oncology, uncertain diagnosis Plt's 114, 79, 65 Peripheral smear on admission showing mild thrombocytopenia, neutrophilia Baseline Pt 85 in 02/03 Discontinuing heparin SCDs for DVT prophylaxis (5) COPD (chronic obstructive pulmonary disease) ICD Codes: J44.9 - Chronic obstructive pulmonary disease, unspecified Status: Chronic Plan: Continued cough and shortness of breath per patient CXR: WNL, pt asymptomatic on exam O2 Sats WNL Duonebs q6 scheduled ALbuterol q2 PRN Add Symbicort O2 available PRN f/u PPD Pleural effusion noted on echocardiogram, repeat chest x-ray on 09/04. (6) Hepatitis C ICD Codes: B19.20 - Unspecified viral hepatitis C without hepatic coma Status: Chronic Plan: Chronic Hep C LFT trending down f/u Hep panel f/u Hep C RNA Liver ultrasound: Diffusely increased hepatic echogenicity, early cirrhosis. Her lines splenomegaly suggests some degree of portal hypertension. No ascites. (7) Substance abuse ICD Codes: F19.10 - Other psychoactive substance abuse, uncomplicated Status: Chronic Plan: Smoking - Will add nicotine patch if needed Drug use -UDS: Positive cocaine - CIWA protocol for precaution - Monitor VS, caution for withdrawl (8) fen/ppx Status: Chronic Plan: Fluids: Discontinuing fluids on 09/04,PO intake is now adequate Electrolytes: Follow-up CMP, gave one-time dose of potassium 40 mEq due to potassium of 3.4 on 09/04 Nutrition: regular diet GI ppx: not indicated Discontinuing Lovenox and setting of thrombocytopenia, SCDs for DVT prophylaxis (Vinay Gomes MD R1) Vinay Gomes MD R1 Sep 04, 2017 11:13 Shayna Gonsales MD Sep 04, 2017 16:57
[2017-09-04] MEDS ORDERED: LACTOBACILLUS ACIDOPHILUS 1 GM PACKET PO SCH (13:00)
--- NOTE | 2017-09-04 14:22 | HHI.DCPOC ---
Discharge Care Plan Diagnosis: (1) SIRS (systemic inflammatory response syndrome) (2) Thrombocytopenia Goals to Promote Your Health * To prevent worsening of your condition and complications * To maintain your health at the optimal level Directions to Meet Your Goals Take your medications as prescribed Follow your dietary instruction Follow activity as directed Keep your appointments as scheduled Take your immunizations and boosters as scheduled If your symptoms worsen call your PCP, if no PCP go to Urgent Care Center or Emergency Room Smoking is Dangerous to Your Health. Avoid second hand smoke Call the 24-hour hour crisis hotline for domestic abuse at Vinay Gomes MD R1 Sep 04, 2017 14:22
--- NOTE | 2017-09-04 15:38 | HHI.DS ---
Discharge Summary Admission Date Sep 01, 2017 at 15:08 Admitting Diagnosis Severe sepsis (1) SIRS (systemic inflammatory response syndrome) ICD Codes: R65.10 - Systemic inflammatory response syndrome (SIRS) of non- infectious origin without acute organ dysfunction Status: Resolved (2) Heart murmur ICD Codes: R01.1 - Cardiac murmur, unspecified Status: Acute Brief History 47 y/o M, IVDU and possibly homeless, pmhx of Hep C and neuropathy, presents with N/V, diarrhea, weakness, and toe pain x 20 hours. He states he vomited several times a night around 8 PM and he has had 5 episodes of diarrhea. He denies eating any abnormal foods. He denies any sick contacts. Denies hematemesis or melena. He has felt fever/chills overnight and was unable to sleep because he was so uncomfortable. He last used heroin 3 days ago. He has also headache and cough with white foamy sputum since last night but has not had any acute difficulty breathing. He appears to be breathing comfortably at time of exam with no coughing. He did have pain with urination once today. He denies any change in frequency or hematuria. He states he uses heroin 1x/month. He has ever been to a rehabilitation facility and only injects into his left arm. CBC/BMP: 09/03/17 1205 09/03/17 1205 Significant Findings Laboratory Tests Test 09/01/17 15:50 09/01/17 16:25 09/01/17 16:40 09/01/17 17:00 Blood Urea Nitrogen 23 MG/DL (7-18) Creatinine 1.37 MG/DL (0.60-1.30) Random Glucose 73 MG/DL (74-106) Total Protein 5.1 GM/DL (6.4-8.2) Albumin 2.0 GM/DL (3.4-5.0) Calcium Level 6.4 MG/DL (8.5-10.1) Aspartate Amino Transf (AST/SGOT) 103 U/L (15-37) Alanine Aminotransferase (ALT/SGPT) 104 U/L (12-78) Total Bilirubin 2.2 MG/DL (0.2-1.0) Chloride Level 111 MEQ/L (98-107) Carbon Dioxide Level 19.5 MEQ/L (21.0-32.0) Estimat Glomerular Filtration Rate 55 ML/MIN (>89) Protein Corrected Calcium 7.4 MG/DL (8.5-10.1) Iron Level 21 MCG/DL (65-175) Total Iron Binding Capacity 192 MCG/DL (250-450) Percent Iron Saturation 10.9 % (20-50) Urine Bacteria OCC /hpf (NONE) Urine Cocaine Screen POS (NEG) Hepatitis C Antibody REACTIVE (NEGATIVE) Lactic Acid Level 3.5 mmol/L (0.4-2.0) Thiamine Level 373 nmol/L (70-180) Test 09/01/17 17:10 09/01/17 22:10 09/01/17 23:30 09/02/17 04:50 Calcium Level 7.2 MG/DL (8.5-10.1) 7.7 MG/DL (8.5-10.1) White Blood Count 27.5 TH/MM3 (4.0-11.0) Red Blood Count 4.46 MIL/MM3 (4.50-5.90) Platelet Count 79 TH/MM3 (150-450) Neutrophils (%) (Auto) 88.9 % (16.0-70.0) Lymphocytes (%) (Auto) 5.1 % (9.0-44.0) Neutrophils # (Auto) 24.5 TH/MM3 (1.8-7.7) Monocytes # (Auto) 1.5 TH/MM3 (0-0.9) Band Neutrophils % 40 % (0-6) Lymphocytes % 4 % (9-44) Neutrophils # (Manual) 25.6 TH/MM3 (1.8-7.7) Metamyelocytes 6 % (0-1) Toxic Granulation 1+ (NORMAL) Toxic Vacuolation PRESENT (NONE SEEN) Platelet Estimate LOW (NORMAL) Prothrombin Time 14.0 SEC (9.8-11.6) Blood Urea Nitrogen 27 MG/DL (7-18) Creatinine 1.33 MG/DL (0.60-1.30) Random Glucose 66 MG/DL (74-106) Total Protein 6.0 GM/DL (6.4-8.2) Albumin 2.4 GM/DL (3.4-5.0) Aspartate Amino Transf (AST/SGOT) 96 U/L (15-37) Alanine Aminotransferase (ALT/SGPT) 105 U/L (12-78) Total Bilirubin 2.1 MG/DL (0.2-1.0) Chloride Level 111 MEQ/L (98-107) Estimat Glomerular Filtration Rate 57 ML/MIN (>89) Test 09/02/17 09:07 09/02/17 10:48 09/03/17 12:05 09/03/17 20:15 White Blood Count 13.0 TH/MM3 (4.0-11.0) Red Blood Count 4.31 MIL/MM3 (4.50-5.90) Platelet Count 65 TH/MM3 (150-450) Neutrophils (%) (Auto) 85.1 % (16.0-70.0) Neutrophils # (Auto) 11.0 TH/MM3 (1.8-7.7) Neutrophils % (Manual) 72 % (16-70) Band Neutrophils % 17 % (0-6) Lymphocytes % 7 % (9-44) Neutrophils # (Manual) 11.7 TH/MM3 (1.8-7.7) Myelocytes 1 % (0-0) Toxic Granulation 1+ (NORMAL) Toxic Vacuolation PRESENT (NONE SEEN) Platelet Estimate LOW (NORMAL) Total Protein 6.2 GM/DL (6.4-8.2) Albumin 2.4 GM/DL (3.4-5.0) Calcium Level 7.8 MG/DL (8.5-10.1) Aspartate Amino Transf (AST/SGOT) 61 U/L (15-37) Alanine Aminotransferase (ALT/SGPT) 79 U/L (12-78) Potassium Level 3.4 MEQ/L (3.5-5.1) Chloride Level 116 MEQ/L (98-107) Estimat Glomerular Filtration Rate 83 ML/MIN (>89) PE at Discharge GENERAL: Patient seen walking around room in no acute distress. Comfortable on today's exam SKIN: Warm and dry. HEAD: Normocephalic. EYES: No scleral icterus. No injection or drainage. NECK: Supple, trachea midline. No JVD or lymphadenopathy. CARDIOVASCULAR: Regular rate and rhythm with no murmurs appreciated RESPIRATORY: Breath sounds equal bilaterally, slightly diminished breath sounds at bases. No accessory muscle use. GASTROINTESTINAL: Abdomen soft, non-tender, nondistended. MUSCULOSKELETAL: No cyanosis, or edema. No erythema or swelling of extremities. BACK: Nontender without obvious deformity. No CVA tenderness. No spinal tenderness. Hospital Course Patient admitted with nausea/vomiting, diarrhea, malaise. On Admission: Heart rate 112, WBC 37, Lactic acid trend: 1.7. Source of infection was unknown but differential included UTI, PNA, influenza, endocarditis/bacteremia. Patient was started on IV vancomycin and Zosyn. Workup including CXR, UA with culture, blood cultures, rapid influenza test, stool studies/cultures, RPR, urine legionella, pneumococcal antigens, Echocardiogram were within normal limits. Patient improved drastically over the next 48 hours with WBC count dropping to 13, VS remaining within normal limits as well as symptomatic improvement. Patient was discharged on 5 day course of Levaquin with 1 week follow up with PCP, CBC labwork. Both patient and primary team felt patient was safe for discharge. Pt Condition on Discharge: Good Discharge Disposition: Discharge Home Discharge Instructions DIET: Follow Instructions for: As Tolerated, No Restrictions Speech Therapy-Diet Recommends: Regular Activities you can perform: Regular-No Restrictions Follow up Referrals: PCP Follow-up - 2 Weeks PCP Follow-up - 2 Weeks @ [facility] New Orders: CBC WITH DIFF - 1 Week New Medications: Levofloxacin (Levaquin) 750 Mg Tablet 750 MG PO DAILY for Infection, #5 TAB 0 Refills Vinay Gomes MD R1 Sep 04, 2017 15:37
== END 2017-09-04 15:29 | disposition home or self-care (01) | DRG 872 ==
LOC: NEPE 11:27 → NEDA 15:08 → N04A 18:39
PROVIDERS: ADMIT Family Medicine; ATTEND Family Medicine
DX: R65.10 Systemic inflammatory response syndrome (SIRS) of non-infectious origin without acute organ dysfunction (principal); D69.6 Thrombocytopenia, unspecified; G62.9 Polyneuropathy, unspecified; F11.10 Opioid abuse, uncomplicated; E86.0 Dehydration; B18.2 Chronic viral hepatitis C; Z59.0 Homelessness; F17.210 Nicotine dependence, cigarettes, uncomplicated; R00.0 Tachycardia, unspecified; J44.9 Chronic obstructive pulmonary disease, unspecified
CPT/HCPCS: 71045; 71046; 76705; 80053; 80074; 80202; 80307; 81001; 82105; 82272; 82310; 82607; 82746; 83036; 83540; 83550; 83605; 83690; 83735; 84425; 84484; 85007; 85027; 85060; 85384; 85610; 86592; 86703; 87040; 87070; 87086; 87205; 87328; 87329; 87491; 87493; 87506; 87522; 87536; 87591; 87804; 93005; 93306; 93970; 94640; 94664; 96361; 96365; 96367; J0610; J1650; J2543; J3370; J7030; J7050; J7613; J7644